=== PATIENT | female | born 1955 | race Two or more races ===

== ENCOUNTER 2020-10-30 13:42 | Inpatient (IN) | payer OTHER ==
[~2020-10-30] VITALS: Ht 162.6 cm; Wt 61.7 kg
[2020-10-30 14:13] VITALS: BP 181/92
--- NOTE | 2020-10-30 14:14 | Emergency Room Report ---
History of Present Illness General Chief Complaint: Chest Pain Source: Patient Present Illness HPI Patient is a 65-year-old female past medical history of hyperlipidemia not on medications who presents to the ER complaining of chest pain. Patient complains of substernal chest pressure that started on Wednesday on exertion. She states that she does not have pain at rest. She states it is associated with shortness of breath. She denies any fever or chills. She denies any cough. She denies any abdominal pain nausea or vomiting. She denies any smoking. Allergies: Coded Allergies: No Known Allergies (Unverified , 10/30/20) COVID-19 Screening Contact w/high risk pt: No Experienced COVID-19 symptoms?: No COVID-19 Testing performed OTOLOGIST: No COVID-19 Screening: Negative COVID-19 COVID-19 Testing Source: nasal Patient History Reviewed Nursing Documentation: PMH: Agreed; PSxH: Agreed Nursing Documentation-PMH Past Medical History: No Stated History Review of Systems All Other Systems: negative except mentioned in HPI Physical Exam Vital Signs Date Time Temp Pulse Resp B/P (MAP) Pulse Ox O2 Delivery O2 Flow Rate FiO2 10/30/20 13:47 98.2 76 18 181/92 (121) 96 Room Air Sp02 EP Interpretation: reviewed, normal General Appearance: no apparent distress, alert, GCS 15, non-toxic Head: normocephalic, atraumatic Eyes: bilateral eye normal inspection, bilateral eye PERRL ENT: hearing grossly normal, normal pharynx, no angioedema, normal voice Neck: full range of motion, supple/symm/no masses Respiratory: chest non-tender, lungs clear, normal breath sounds, speaking full sentences Cardiovascular #1: regular rate, rhythm, no edema Gastrointestinal: normal bowel sounds, non tender, soft, non-distended, no guar ding, no rebound Rectal: deferred Musculoskeletal: normal range of motion Neurologic: trophy assembler III-XII nml as tested, oriented x3 Psychiatric: no suicidal/homicidal ideation Skin: no rash Lymphatic: no adenopathy Medical Decision Making Diagnostic Impression: Primary Impression: Chest pain Additional Impression: Exercise intolerance ER Course Patient has new exercise intolerance and chest pain with associated shortness of breath. Patient denies pain in the emergency room because she is at rest. EKG demonstrates no ST elevation. Chest x-ray demonstrates no acute cardiopulmonary pathology. Troponin negative x1. D-dimer is negative. Patient given oral aspirin in the emergency room. Patient will be admitted for further treatment and evaluation. Laboratory Tests Test 10/30/20 13:57 White Blood Count 8.5 K/UL (4.8-10.8) Red Blood Count 4.98 M/UL (4.20-5.40) Hemoglobin 14.7 G/DL (12.0-16.0) Hematocrit 44.5 % (37.0-47.0) Mean Corpuscular Volume 89 FL (80-99) Mean Corpuscular Hemoglobin 29.5 PG (27.0-31.0) Mean Corpuscular Hemoglobin Concent 33.0 G/DL (32.0-36.0) Red Cell Distribution Width 12.6 % (11.6-14.8) Platelet Count 245 K/UL (150-450) Mean Platelet Volume 7.3 FL (6.5-10.1) Neutrophils (%) (Auto) 63.0 % (45.0-75.0) Lymphocytes (%) (Auto) 28.8 % (20.0-45.0) Monocytes (%) (Auto) 6.2 % (1.0-10.0) Eosinophils (%) (Auto) 0.9 % (0.0-3.0) Basophils (%) (Auto) 1.1 % (0.0-2.0) D-Dimer < 0.19 mg/L FEU Sodium Level 139 MMOL/L (136-145) Potassium Level 4.6 MMOL/L (3.5-5.1) Chloride Level 104 MMOL/L (98-107) Carbon Dioxide Level 24 MMOL/L (21-32) Anion Gap 11 mmol/L (5-15) Blood Urea Nitrogen 16 mg/dL (7-18) Creatinine 0.5 MG/DL (0.55-1.30) L Estimated Glomerular Filtration Rate > 60 mL/min (>60) Glucose Level 108 MG/DL (74-106) H Calcium Level 9.6 MG/DL (8.5-10.1) Magnesium Level 2.3 MG/DL (1.8-2.4) Total Bilirubin 0.6 MG/DL (0.2-1.0) Aspartate Amino Transferase (AST) 31 U/L (15-37) Alanine Aminotransferase (ALT) 25 U/L (12-78) Alkaline Phosphatase 89 U/L (46-116) Troponin I 0.000 ng/mL (0.000-0.056) Pro-B-Type Natriuretic Peptide 34 pg/mL (0-125) Total Protein 8.2 G/DL (6.4-8.2) Albumin 4.4 G/DL (3.4-5.0) Globulin 3.8 g/dL Albumin/Globulin Ratio 1.2 (1.0-2.7) EKG Diagnostic Results Troponin ordered: Yes When was troponin ordered?: Oct 30, 2020 EKG Time: 14:01 EP Interpretation: Latrice Marc MD Rate: normal Rhythm: NSR - [address] Segments: no acute changes ASA given to the pt in ED: No Rhythm Strip Diag. Results Rhythm Strip Time: 14:18 EP Interpretation: yes Rate: 69 bpm Rhythm: NSR, no PVC's, no ectopy Chest X-Ray Diagnostic Results Chest X-Ray Diagnostic Results : Chest X-Ray Ordered: Yes # of Views/Limited/Complete: 1 View Indication: Chest Pain EP Interpretation: Yes Interpretation: no consolidation, no effusion, no pneumothorax, no acute cardiopulmonary disease Impression: No acute disease Electronically Signed by: Latrice Marc MD Last Vital Signs Date Time Temp Pulse Resp B/P (MAP) Pulse Ox O2 Delivery O2 Flow Rate FiO2 10/30/20 13:47 98.2 76 18 181/92 (121) 96 Room Air Disposition: ADMITTED INPATIENT - Telemetry Condition: Critical Physician Consult: Dr. Zhang at 330pm Referrals: BRANDI MEDRANO,REFERRING (PCP) Additional Instructions: Please note that this report is being documented using Truvis[employer] technology. This can lead to erroneous entry secondary to incorrect interpretation by the dictating instrument. Latrice Marc M.D. Oct 30, 2020 14:14
[2020-10-30] MEDS ORDERED: Aspirin Baby 81mg ORAL ONE (14:15)
[2020-10-30 14:24] LABS: BASOPHILS % (AUTO) 1.1 % (0.0-2.0); EOSINOPHILS % (AUTO) 0.9 % (0.0-3.0); HEMATOCRIT 44.5 % (37.0-47.0); HEMOGLOBIN 14.7 G/DL (12.0-16.0); LYMPHOCYTES % (AUTO) 28.8 % (20.0-45.0); MEAN CORPUSCULAR VOLUME 89 FL (80-99); MONOCYTES % (AUTO) 6.2 % (1.0-10.0); PLATELET COUNT 245 K/UL (150-450); RED BLOOD COUNT 4.98 M/UL (4.20-5.40); RED CELL DISTRIBUTION WIDTH 12.6 % (11.6-14.8); WHITE BLOOD COUNT 8.5 K/UL (4.8-10.8)
[2020-10-30 14:25] LABS: ANION GAP 11 mmol/L (5-15); BLOOD UREA NITROGEN 16 mg/dL (7-18); CALCIUM 9.6 MG/DL (8.5-10.1); CARBON DIOXIDE 24 MMOL/L (21-32); CHLORIDE 104 MMOL/L (98-107); CREATININE 0.5 MG/DL (0.55-1.30); POTASSIUM 4.6 MMOL/L (3.5-5.1); SODIUM 139 MMOL/L (136-145)
[2020-10-30 14:36] LABS: ALANINE AMINOTRANSFERASE 25 U/L (12-78); ALBUMIN 4.4 G/DL (3.4-5.0); ALBUMIN/GLOBULIN RATIO 1.2 (1.0-2.7); ALKALINE PHOSPHATASE 89 U/L (46-116); ASPARTATE AMINO TRANSFERASE 31 U/L (15-37); BILIRUBIN,TOTAL 0.6 MG/DL (0.2-1.0)
--- NOTE | 2020-10-30 15:22 | Diagnostic Imaging Report ---
Indication: Chest pain Technique: One view of the chest Comparison: none Findings: Lungs and pleural spaces are clear. Heart size is normal. Impression: No acute process
--- NOTE | 2020-10-30 16:25 | Consultation ---
Consult Note Consult Note DATE OF CONSULTATION: 10/30/2020 CONSULTING PHYSICIAN: Alon Earl MD. ATTENDING PHYSICIAN: Dr. Zhang REASON FOR CONSULTATION: Shortness of breath associated with exertional chest pain HISTORY OF PRESENT ILLNESS: Ms. Darby is a 65-year-old female with past medical history of hyperlipidemia not on medications, who presented to the ED for evaluation of chest discomfort. Patient states that she had a new onset chest pain 6 days ago for which she went to a [facility]. She stated that she had blurry vision associated with the chest pain. She reports her chest pain was acute onset, and happened when she was laying down. She reports that she was not admitted to the hospital and was given an [id number] pain medication. She was told to make a follow-up appointment with her primary care provider. She called her primary care provider on Wednesday, 2 days ago, but was told she could not be seen anytime soon. Today she presents to the ED concerned about her recent chest discomfort and wants evalulation. Today she is asymptomatic. She denies headache, chest pain, fever, nausea/vomiting, diarrhea, or dysuria. She does report orthopnea x2 weeks, and reports using pillows at night. She reports seeing a pharmacist in charge owner about 5 years ago for palpitation but denies being on any medication at home. Initial EKG showed normal sinus rhythm without acute changes. Chest x-ray was clear from acute disease. Patient was given aspirin in the ER and is awaiting admission for further treatment and evaluation. PAST MEDICAL HISTORY: Hyperlipidemia MEDICATIONS: None per patient ALLERGIES: No known allergies FAMILY HISTORY: Unknown PERSONAL/SOCIAL HISTORY: Patient is from home REVIEW OF SYSTEMS: Negative except mentioned in HPI PHYSICAL EXAMINATION: VITAL SIGNS: Blood pressure 181/92, heart rate 76, respiratory rate 18, weight 62 kg, height 162 cm. General: Patient laying in bed comfortably, NAD, normal work of breathing on room air HEENT: Head exam reveals that the head is normocephalic, atraumatic without deformity or unusual swelling. Pupils are PERRLA. CHEST AND LUNGS: Reveals clear, normal, symmetrical breath sounds with no adventitious sounds. CARDIOVASCULAR: Reveals normal S1, S2 without murmurs, rubs, or clicks. ABDOMEN: Soft with no tenderness or organomegaly. RECTAL: Deferred. MUSCULOSKELETAL: There is no tenderness to palpation. Range of motion is normal. NEUROLOGICAL: Alert and oriented x3 , nonfocal LABORATORY DATA: CBC is within normal limits Chemistries show creatinine 0.5, glucose 108, otherwise unremarkable D-dimer negative Assessment/Plan 1. History of respiratory distress associated with chest discomfort -Patient reports 2 weeks history of orthopnea and chest discomfort -Currently saturating well on room air, normal work of breathing -Provide supplemental oxygen as needed 2. Chest discomfort -Troponin negative -BNP within normal limits -D-dimer negative 3. History of hyperlipidemia -Patient is not on any medication -Follow-up lipid panel 4. Hypertension - needs BP control The care for this patient was discussed with my supervising physician. Time spent for this case was approximately 31 minutes. Zach Gibson Oct 30, 2020 16:25
[2020-10-30 16:43] VITALS: BP 134/83
--- NOTE | 2020-10-30 16:47 | NUR ---
ED Nurses Note: Give report to Finn FREY
--- NOTE | 2020-10-30 17:20 | NUR ---
NURSE NOTES: Received patient from ED via gurney. Patient is Awake, A/O x4, on room air, respirations unlabored. Gibralt[place] speaking. Patient denies pain at this time. IV in the Right hand, site intact. Bed low and locked, side rails up x2, call light within reach with return demonstration. Patient oriented to room and surroundings. VS taken, Heart monitor placed, belongings list verified. Dr Zhang contacted for admission orders.
[2020-10-30 17:35] VITALS: BP 151/83
--- NOTE | 2020-10-30 17:53 | NUR ---
NURSE NOTES: Dr Zhang office contacted for admission orders, message left.
[2020-10-30] MEDS ORDERED: Nitroglycerin Subl 0.4mg tab SL PRN (18:15)
--- NOTE | 2020-10-30 19:21 | NUR ---
NURSE HAND-OFF REPORT: Important Events on Shift:[admission] Patient Status: [FULL CODE] Diet: [cardiac] Pending Orders: [2d echo, troponin q 6 x3] Pending Results/Labs:[] Pending MD notification:[] Latest Vital Signs: Temperature 98.1 , Pulse 66 , B/P 151 /83 , Respiratory Rate 17 , O2 SAT 98 , Room Air, O2 Flow Rate . Vital Sign Comment: [] EKG Rhythm: Sinus Rhythm Rhythm change?: MD Notified?: - MD Response: Latest Priest Fall Score: 20 Fall Risk: Low Risk Safety Measures: Call light Within Reach, Bed Alarm , Side Rails Side Rails x2, Bed position Low and Locked. Fall Precautions: Patient Fall Education Report given to [Cristino FREY].
--- NOTE | 2020-10-30 19:25 | NUR ---
NURSE NOTES: Report received from TK Briseno. Patient is awake on bed, alert and oriented x 4. classroom monitor is in place, shows sinus rhythm with no chest pain reported. On room air, saturating 97%. On cardiac diet, instructed and amenable. Per RN patient is ambulatory with steady gait. IV site is on right hand g-20 saline locked that is patent and intact. Safety measures are in place, bed in lowest and locked position, side rails up x 2, call light button and bedside table within reach, instructed to call for any assistance needed, will continue plan of care.
[2020-10-30 20:00] VITALS: BP 167/81
--- NOTE | 2020-10-30 20:00 | NUR ---
NURSE NOTES: Place SCD's on bilateral lower extremities for DVT prophylaxis.
[2020-10-30] MEDS: Atorvastatin 80mg tab ORAL SCH (20:24)
--- NOTE | 2020-10-30 20:59 | Consultation ---
History of Present Illness General Chief Complaint: Chest Pain Present Illness HPI 65-year-old female with past medical history of hyperlipidemia not on medications, admitted through the ER c/o chest discomfort x 6days. No hx of SD or prior PCI. She reports her chest pain was acute onset, and happened when she was laying down. Today she is asymptomatic. She denies headache, chest pain, fever, nausea/vomiting, diarrhea, or dysuria. She does report orthopnea x2 weeks, and reports using pillows at night. She reports seeing a floor nurse about 5 years ago for palpitation but denies being on any medication at home. Given aspirin and nitro in the ER. Echo pending. Troponin negative, BNP negative, EKG SR T wave inversions non-specific,no ST elevation or depression. Allergies: Coded Allergies: No Known Allergies (Unverified , 10/30/20) Patient History Limited by: language barrier History Provided By: Patient Healthcare decision maker N Resuscitation status Advanced Directive on File Review of Systems All Other Systems: negative except mentioned in HPI Physical Exam General Appearance: no apparent distress, alert HEENT: normocephalic, atraumatic Neck: supple Respiratory/Chest: lungs clear, normal breath sounds Cardiovascular/Chest: normal rate, regular rhythm Abdomen: soft Extremities: no edema Skin Exam: warm/dry Neurologic: sample sawyer II-XII grossly normal Last 24 Hour Vital Signs Date Time Temp Pulse Resp B/P (MAP) Pulse Ox O2 Delivery O2 Flow Rate FiO2 10/30/20 18:34 66 151/83 10/30/20 17:35 98.1 53 17 151/83 (105) 98 10/30/20 17:12 Room Air 10/30/20 17:00 98.0 58 18 134/83 100 Room Air 10/30/20 16:43 98.0 58 18 134/83 100 Room Air 10/30/20 14:13 98.2 18 181/92 96 Room Air 10/30/20 14:13 76 18 Room Air 10/30/20 13:47 98.2 76 18 181/92 (121) 96 Room Air Laboratory Tests Test 10/30/20 13:57 White Blood Count 8.5 K/UL (4.8-10.8) Red Blood Count 4.98 M/UL (4.20-5.40) Hemoglobin 14.7 G/DL (12.0-16.0) Hematocrit 44.5 % (37.0-47.0) Mean Corpuscular Volume 89 FL (80-99) Mean Corpuscular Hemoglobin 29.5 PG (27.0-31.0) Mean Corpuscular Hemoglobin Concent 33.0 G/DL (32.0-36.0) Red Cell Distribution Width 12.6 % (11.6-14.8) Platelet Count 245 K/UL (150-450) Mean Platelet Volume 7.3 FL (6.5-10.1) Neutrophils (%) (Auto) 63.0 % (45.0-75.0) Lymphocytes (%) (Auto) 28.8 % (20.0-45.0) Monocytes (%) (Auto) 6.2 % (1.0-10.0) Eosinophils (%) (Auto) 0.9 % (0.0-3.0) Basophils (%) (Auto) 1.1 % (0.0-2.0) D-Dimer < 0.19 mg/L FEU Sodium Level 139 MMOL/L (136-145) Potassium Level 4.6 MMOL/L (3.5-5.1) Chloride Level 104 MMOL/L (98-107) Carbon Dioxide Level 24 MMOL/L (21-32) Anion Gap 11 mmol/L (5-15) Blood Urea Nitrogen 16 mg/dL (7-18) Creatinine 0.5 MG/DL (0.55-1.30) L Estimat Glomerular Filtration Rate > 60 mL/min (>60) Glucose Level 108 MG/DL (74-106) H Calcium Level 9.6 MG/DL (8.5-10.1) Magnesium Level 2.3 MG/DL (1.8-2.4) Total Bilirubin 0.6 MG/DL (0.2-1.0) Aspartate Amino Transf (AST/SGOT) 31 U/L (15-37) Alanine Aminotransferase (ALT/SGPT) 25 U/L (12-78) Alkaline Phosphatase 89 U/L (46-116) Troponin I 0.000 ng/mL (0.000-0.056) Pro-B-Type Natriuretic Peptide 34 pg/mL (0-125) Total Protein 8.2 G/DL (6.4-8.2) Albumin 4.4 G/DL (3.4-5.0) Globulin 3.8 g/dL Albumin/Globulin Ratio 1.2 (1.0-2.7) Height (Feet): 5 Height (Inches): 4.00 Weight (Pounds): 136 Medications Current Medications Medications (Trade) Dose Ordered Sig/Sang Route PRN Reason Start Time Stop Time Status Last Admin Dose Admin Amlodipine Besylate (Norvasc) 5 mg DAILY ORAL 10/30/20 18:30 11/29/20 18:29 10/30/20 18:34 Aspirin (ASA) 81 mg DAILY ORAL 10/31/20 09:00 12/15/20 08:59 Atorvastatin Calcium (Lipitor) 80 mg BEDTIME ORAL 10/30/20 21:00 01/28/21 20:59 10/30/20 20:24 Hydralazine HCl (Apresoline) 10 mg Q4H PRN IV For High Blood Pressure 10/30/20 18:15 01/28/21 18:14 Nitroglycerin (Ntg) 0.4 mg Q5M PRN SL Prn Chest Pain 10/30/20 18:15 11/29/20 18:14 Assessment/Plan Status: stable Assessment/Plan: 1. Chest pain - atypical, non-exertional troponin negative 2. HTN 3. HPLD Echo pending. Recommend Lexiscan to r/o ischemic cardiomyopathy as etiology for chest pain. Further recs to follow clinical progress. Stable at time of exam. Yamilex Morales PA-C Oct 30, 2020 20:59
--- NOTE | 2020-10-30 22:00 | NUR ---
NURSE NOTES: Patient's blood pressure was 169/87, with due hydralazine 0.5mg IV push.
--- NOTE | 2020-10-30 23:30 | NUR ---
NURSE NOTES: Re-checked patient's blood pressure after giving hydralazine was 89/50, will place the patient on Trendelenburg position.
[2020-10-31] VITALS: BP 98/55
[2020-10-31 04:00] VITALS: BP 109/65
--- NOTE | 2020-10-31 07:22 | NUR ---
NURSE HAND-OFF REPORT: Important Events on Shift: Patient has been resting well the whole shift, with no complaints of chest pain. Patient Status: Patient is awake on bed in stable condition. Plan of care endorsed. Diet: Cardiac diet Pending Orders: 2D-ECHO Pending Results/Labs:AM lab result Pending MD notification:none Latest Vital Signs: Temperature 97.5 , Pulse 79 , B/P 109 /65 , Respiratory Rate 20 , O2 SAT 96 , Room Air, O2 Flow Rate . Vital Sign Comment: stable EKG Rhythm: Sinus Rhythm Rhythm change?: N MD Notified?: - MD Response: Latest Priest Fall Score: 20 Fall Risk: Low Risk Safety Measures: Call light Within Reach, Bed Alarm , Side Rails Side Rails x2, Bed position Low and Locked. Fall Precautions: Patient Fall Education Report given to TK Briseno.
--- NOTE | 2020-10-31 07:32 | NUR ---
NURSE NOTES: Received patient in bed. Awake, A/O x4, chilean speaking only. Patient denies pain. On room air, respirations unlabored. Bed low and locked, side rails up x2, call light within reach with return demonstration.
[2020-10-31 08:00] VITALS: BP 110/72
--- NOTE | 2020-10-31 08:12 | History & Physical ---
History of Present Illness General Reason for Hospitalization: Chest Pain Present Illness HPI Ms. Darby is a 65-year-old female with past medical history of hyperlipidemia not on medications, who presented to the ED for evaluation of chest discomfort. Patient states that she had a new onset chest pain 6 days ago for which she went to a community [facility]. She stated that she had blurry vision associated with the chest pain. She reports her chest pain was acute onset, and happened when she was laying down. She reports that she was not admitted to the hospital and was given an [id number] pain medication. She was told to make a follow-up appointment with her primary care provider. She called her primary care provider on Wednesday, 2 days ago, but was told she could not be seen anytime soon. Today she presents to the ED concerned about her recent chest discomfort and wants evalulation. Today she is asymptomatic. She denies headache, chest pain, fever, nausea/vomiting, diarrhea, or dysuria. She does report orthopnea x2 weeks, and reports using pillows at night. She reports seeing a behaviour support teacher about 5 years ago for palpitation but denies being on any medication at home. Initial EKG showed normal sinus rhythm without acute changes. Chest x-ray was clear from acute disease. Patient was given aspirin in the ER and is awaiting admission for further treatment and evaluation. PAST MEDICAL HISTORY: Hyperlipidemia MEDICATIONS: None per patient ALLERGIES: No known allergies FAMILY HISTORY: Unknown PERSONAL/SOCIAL HISTORY: Patient is from home Allergies: Coded Allergies: No Known Allergies (Unverified , 10/30/20) COVID-19 Screening Contact w/high risk pt: No Experienced COVID-19 symptoms?: No Patient History Healthcare decision maker N Resuscitation status Advanced Directive on File Review of Systems Review of Symptoms General ROS: no weight loss or fever Psychological ROS: no depression or mood changes, no memory loss Ophthalmic ROS: no visual changes or eye irritation ENT ROS: no nasal congestion, hearing loss, dizziness Allergy and Immunology ROS: no allergic symptoms or urticaria Hematological and Lymphatic ROS: no swollen glands, unusual bleeding or bruising Endocrine ROS: no polyuria, polydipsia, weight changes, temperature intolerance Respiratory ROS: no cough, shortness of breath, or wheezing Cardiovascular ROS: + chest pain Gastrointestinal ROS: denies abdominal pain, bright red blood in stool. Musculoskeletal ROS: no myalgias or arthralgias Neurological ROS: no TIA or stroke symptoms Dermatological ROS: no new or changing skin lesions, rashes or pruritis Physical Exam Physical Exam General appearance: alert, cooperative, no distress, appears stated age Head: Normocephalic, without obvious abnormality, atraumatic Eyes: conjunctivae/corneas clear. PERRL, EOM's intact. Fundi benign Throat: Lips, mucosa, and tongue normal. Teeth and gums normal Neck: supple, symmetrical, trachea midline, no adenopathy, thyroid: not enlarged, symmetric, no tenderness/mass/nodules, no carotid bruit and no JVD Lungs: clear to auscultation bilaterally Heart: regular rate and rhythm, S1, S2 normal, no murmur, click, rub or gallop Abdomen: soft, non-tender. Bowel sounds normal. No masses, no organomegaly Extremities: extremities normal, atraumatic, no cyanosis or edema Pulses: 2+ and symmetric Skin: Skin color, texture, turgor normal. No rashes or lesions Neurologic: Grossly normal Last 24 Hour Vital Signs Date Time Temp Pulse Resp B/P (MAP) Pulse Ox O2 Delivery O2 Flow Rate FiO2 10/31/20 08:00 96.9 72 18 110/72 (85) 99 10/31/20 04:00 79 10/31/20 04:00 97.5 79 20 109/65 (80) 96 10/31/20 00:00 65 10/31/20 00:00 98.1 62 18 98/55 (69) 96 10/30/20 22:18 169/87 10/30/20 21:00 Room Air 10/30/20 20:00 58 10/30/20 20:00 98.1 55 18 167/81 (109) 98 10/30/20 18:34 66 151/83 10/30/20 17:35 98.1 53 17 151/83 (105) 98 10/30/20 17:12 Room Air 10/30/20 17:00 98.0 58 18 134/83 100 Room Air 10/30/20 16:43 98.0 58 18 134/83 100 Room Air 10/30/20 14:13 98.2 18 181/92 96 Room Air 10/30/20 14:13 76 18 Room Air 10/30/20 13:47 98.2 76 18 181/92 (121) 96 Room Air Intake and Output 10/30/20 10/31/20 19:00 07:00 Intake Total 100 ml 500 ml Balance 100 ml 500 ml Intake Oral 100 ml 500 ml # Voids 2 Laboratory Tests Test 10/30/20 13:57 10/30/20 20:40 10/31/20 02:15 White Blood Count 8.5 K/UL (4.8-10.8) Red Blood Count 4.98 M/UL (4.20-5.40) Hemoglobin 14.7 G/DL (12.0-16.0) Hematocrit 44.5 % (37.0-47.0) Mean Corpuscular Volume 89 FL (80-99) Mean Corpuscular Hemoglobin 29.5 PG (27.0-31.0) Mean Corpuscular Hemoglobin Concent 33.0 G/DL (32.0-36.0) Red Cell Distribution Width 12.6 % (11.6-14.8) Platelet Count 245 K/UL (150-450) Mean Platelet Volume 7.3 FL (6.5-10.1) Neutrophils (%) (Auto) 63.0 % (45.0-75.0) Lymphocytes (%) (Auto) 28.8 % (20.0-45.0) Monocytes (%) (Auto) 6.2 % (1.0-10.0) Eosinophils (%) (Auto) 0.9 % (0.0-3.0) Basophils (%) (Auto) 1.1 % (0.0-2.0) D-Dimer < 0.19 mg/L FEU Sodium Level 139 MMOL/L (136-145) Potassium Level 4.6 MMOL/L (3.5-5.1) Chloride Level 104 MMOL/L (98-107) Carbon Dioxide Level 24 MMOL/L (21-32) Anion Gap 11 mmol/L (5-15) Blood Urea Nitrogen 16 mg/dL (7-18) Creatinine 0.5 MG/DL (0.55-1.30) L Estimat Glomerular Filtration Rate > 60 mL/min (>60) Glucose Level 108 MG/DL (74-106) H Calcium Level 9.6 MG/DL (8.5-10.1) Magnesium Level 2.3 MG/DL (1.8-2.4) Total Bilirubin 0.6 MG/DL (0.2-1.0) Aspartate Amino Transf (AST/SGOT) 31 U/L (15-37) Alanine Aminotransferase (ALT/SGPT) 25 U/L (12-78) Alkaline Phosphatase 89 U/L (46-116) Troponin I 0.000 ng/mL (0.000-0.056) 0.000 ng/mL (0.000-0.056) 0.032 ng/mL (0.000-0.056) Pro-B-Type Natriuretic Peptide 34 pg/mL (0-125) Total Protein 8.2 G/DL (6.4-8.2) Albumin 4.4 G/DL (3.4-5.0) Globulin 3.8 g/dL Albumin/Globulin Ratio 1.2 (1.0-2.7) Height (Feet): 5 Height (Inches): 4.00 Weight (Pounds): 136 Medications Current Medications Medications (Trade) Dose Ordered Sig/Sang Route PRN Reason Start Time Stop Time Status Last Admin Dose Admin Amlodipine Besylate (Norvasc) 5 mg DAILY ORAL 10/30/20 18:30 11/29/20 18:29 10/30/20 18:34 Aspirin (ASA) 81 mg DAILY ORAL 10/31/20 09:00 12/15/20 08:59 Atorvastatin Calcium (Lipitor) 80 mg BEDTIME ORAL 10/30/20 21:00 01/28/21 20:59 10/30/20 20:24 Hydralazine HCl (Apresoline) 10 mg Q4H PRN IV For High Blood Pressure 10/30/20 18:15 01/28/21 18:14 10/30/20 22:18 Isosorbide Mononitrate (Imdur) 30 mg DAILY ORAL 10/31/20 09:00 11/30/20 08:59 Losartan Potassium (Cozaar) 50 mg DAILY ORAL 10/31/20 09:00 11/30/20 08:59 Nitroglycerin (Ntg) 0.4 mg Q5M PRN SL Prn Chest Pain 10/30/20 18:15 11/29/20 18:14 Assessment/Plan Diagnosis [place]: #Chest pain# #HTN #HLD - admit inpatient - serial trop - tele - echo - stress test - cardiology eval - asa - statin - losartan 50 daily [facility] Hospital declaration INPATIENT level of care is warranted for this patient because patient is a 89 year old with who presents with suspicion of . I have a high level of concern because . Patient is at high risk for . Plan of care/treatment include . Patient care is expected to be greater than 2 midnights. OBSERVATION level of care is warranted for this patient. Patient is a 89 year old with who presents with . Patient will be admitted for 1 midnight, but if additional night(s) is/are necessary, patient will be converted to inpatient status for the entire hospitalization Disposition: Once the patient is stable to leave the hospital, I anticipate the patient will likely be discharged to the following environment: Estimated discharge date: I spent 70 minutes on this patient's case, and minutes was dedicated to counseling and/or care coordination. MIPS (Merit-based Incentive Payment System) Applicable CPT: 04845, 40284 CHECK ALL THAT ARE MET: Measure #5 (CHF): All ages. Prescribe ABDIRAHMAN/ARB upon discharge for patients with left ventricular systolic dysfunction. If not, the reason is clearly documented in the medical chart. Measure #8 (CHF): All ages. Prescribe a beta rhea upon discharge for patients with left ventricular systolic dysfunction. If not, the reason is clearly documented in the medical chart. Measure #47 Advance care plan or surrogate decision maker documented in the medical record. Measure #130 The provider has documented, updated, or reviewed the patients current medication list and has documented it in the patients note. Measure #374 (All): Send report to referring provider. Measure #407(Sepsis due to MSSA bacteremia): Age 18+ Patient treated with a beta-lactam antibiotic (Nafcillin, Oxacillin or Cefazolin) as definitive therapy. MEDICAL COMPLEXITY High complexity medical decision making (need 2/3 categories) Problem - need 4 points Acute/new problem with new plan for workup (4 points, 1 max) Acute/new problem without additional workup (3 points, 1 max) Unstable chronic problem actively being managed (2 point each, 2 max) Stable chronic problem actively being managed (1 point each, 2 max) Self-limited/transient process (constipation, muscle ache, etc) (1 point each, 2 max) Data - need 4 points Reviewed labs/imaging studies (1 points, 2 max) Independent review of imaging (EKG, xrays, etc) (2 points, 2 max) Discussed case with consult/other MD/RN (2 points, 2 max) High Risk - qualify if have one of the following: Severe exacerbation of acute problem, acute mental status change, IV narcotics, monitoring drug levels (vancomycin, INR, tacrolimus etc) Finn Zhang M.D. Oct 31, 2020 08:12
[2020-10-31 08:59] LABS: BASOPHILS % (AUTO) 0.7 % (0.0-2.0); EOSINOPHILS % (AUTO) 0.5 % (0.0-3.0); HEMOGLOBIN 14.5 G/DL (12.0-16.0); LYMPHOCYTES % (AUTO) 21.2 % (20.0-45.0); MEAN CORPUSCULAR VOLUME 90 FL (80-99); MONOCYTES % (AUTO) 6.5 % (1.0-10.0); NEUTROPHILS % (AUTO) 71.2 % (45.0-75.0); PLATELET COUNT 231 K/UL (150-450); RED BLOOD COUNT 4.87 M/UL (4.20-5.40); RED CELL DISTRIBUTION WIDTH 12.6 % (11.6-14.8); WHITE BLOOD COUNT 7.3 K/UL (4.8-10.8)
[2020-10-31] MEDS: Imdur 30mg tab ORAL SCH (09:03)
[2020-10-31] MEDS: Losartan 50mg tab ORAL SCH (09:03)
[2020-10-31] MEDS: Aspirin Baby 81mg ORAL SCH (09:03)
--- NOTE | 2020-10-31 09:26 | Cardiology Progress Note ---
Assessment/Plan Status: stable Assessment/Plan 1. Chest pain - atypical, non-exertional troponin negative 2. HTN 3. HPLD 4.SOB/CHOWDHURY Lexiscan pending, echo pending. Pt resting and breathing easily, c/o chest pain that comes and goes. SBP improved Subjective ROS Limited/Unobtainable: No Cardiovascular: Reports: chest pain Respiratory: Reports: no symptoms Gastrointestinal/Abdominal: Reports: no symptoms Genitourinary: Reports: no symptoms Subjective Feeling a little better, still c/o intermittant chest pain Objective Last 24 Hour Vital Signs Date Time Temp Pulse Resp B/P (MAP) Pulse Ox O2 Delivery O2 Flow Rate FiO2 10/31/20 09:03 110/72 10/31/20 09:03 110/72 10/31/20 09:03 72 110/72 10/31/20 08:00 96.9 72 18 110/72 (85) 99 10/31/20 04:00 79 10/31/20 04:00 97.5 79 20 109/65 (80) 96 10/31/20 00:00 65 10/31/20 00:00 98.1 62 18 98/55 (69) 96 10/30/20 22:18 169/87 10/30/20 21:00 Room Air 10/30/20 20:00 58 10/30/20 20:00 98.1 55 18 167/81 (109) 98 10/30/20 18:34 66 151/83 10/30/20 17:35 98.1 53 17 151/83 (105) 98 10/30/20 17:12 Room Air 10/30/20 17:00 98.0 58 18 134/83 100 Room Air 10/30/20 16:43 98.0 58 18 134/83 100 Room Air 10/30/20 14:13 98.2 18 181/92 96 Room Air 10/30/20 14:13 76 18 Room Air 10/30/20 13:47 98.2 76 18 181/92 (121) 96 Room Air General Appearance: no apparent distress EENT: PERRL/EOMI Neck: no JVD Rhythm: NSR Cardiovascular: normal rate, regular rhythm Respiratory/Chest: lungs clear Abdomen: soft Extremities: no swelling Neurologic: lot worker II-XII grossly normal Intake and Output 10/30/20 10/31/20 19:00 07:00 Intake Total 100 ml 500 ml Balance 100 ml 500 ml Intake Oral 100 ml 500 ml # Voids 2 Laboratory Tests Test 10/30/20 13:57 10/30/20 20:40 10/31/20 02:15 10/31/20 08:10 White Blood Count 8.5 K/UL (4.8-10.8) 7.3 K/UL (4.8-10.8) Red Blood Count 4.98 M/UL (4.20-5.40) 4.87 M/UL (4.20-5.40) Hemoglobin 14.7 G/DL (12.0-16.0) 14.5 G/DL (12.0-16.0) Hematocrit 44.5 % (37.0-47.0) 44.0 % (37.0-47.0) Mean Corpuscular Volume 89 FL (80-99) 90 FL (80-99) Mean Corpuscular Hemoglobin 29.5 PG (27.0-31.0) 29.8 PG (27.0-31.0) Mean Corpuscular Hemoglobin Concent 33.0 G/DL (32.0-36.0) 33.0 G/DL (32.0-36.0) Red Cell Distribution Width 12.6 % (11.6-14.8) 12.6 % (11.6-14.8) Platelet Count 245 K/UL (150-450) 231 K/UL (150-450) Mean Platelet Volume 7.3 FL (6.5-10.1) 8.4 FL (6.5-10.1) Neutrophils (%) (Auto) 63.0 % (45.0-75.0) 71.2 % (45.0-75.0) Lymphocytes (%) (Auto) 28.8 % (20.0-45.0) 21.2 % (20.0-45.0) Monocytes (%) (Auto) 6.2 % (1.0-10.0) 6.5 % (1.0-10.0) Eosinophils (%) (Auto) 0.9 % (0.0-3.0) 0.5 % (0.0-3.0) Basophils (%) (Auto) 1.1 % (0.0-2.0) 0.7 % (0.0-2.0) D-Dimer < 0.19 mg/L FEU Sodium Level 139 MMOL/L (136-145) Pending Potassium Level 4.6 MMOL/L (3.5-5.1) Pending Chloride Level 104 MMOL/L (98-107) Pending Carbon Dioxide Level 24 MMOL/L (21-32) Pending Anion Gap 11 mmol/L (5-15) Blood Urea Nitrogen 16 mg/dL (7-18) Pending Creatinine 0.5 MG/DL (0.55-1.30) L Pending Estimat Glomerular Filtration Rate > 60 mL/min (>60) Pending Glucose Level 108 MG/DL (74-106) H Pending Calcium Level 9.6 MG/DL (8.5-10.1) Pending Magnesium Level 2.3 MG/DL (1.8-2.4) Pending Total Bilirubin 0.6 MG/DL (0.2-1.0) Aspartate Amino Transf (AST/SGOT) 31 U/L (15-37) Alanine Aminotransferase (ALT/SGPT) 25 U/L (12-78) Alkaline Phosphatase 89 U/L (46-116) Troponin I 0.000 ng/mL (0.000-0.056) 0.000 ng/mL (0.000-0.056) 0.032 ng/mL (0.000-0.056) Pending Pro-B-Type Natriuretic Peptide 34 pg/mL (0-125) Total Protein 8.2 G/DL (6.4-8.2) Albumin 4.4 G/DL (3.4-5.0) Globulin 3.8 g/dL Albumin/Globulin Ratio 1.2 (1.0-2.7) Hemoglobin A1c Pending Phosphorus Level Pending Triglycerides Level Pending Cholesterol Level Pending LDL Cholesterol Pending HDL Cholesterol Pending Cholesterol/HDL Ratio Pending Thyroid Stimulating Hormone (TSH) Pending Yamilex Morales PA-C Oct 31, 2020 09:26
[2020-10-31 09:41] LABS: ANION GAP 5 mmol/L (5-15); BLOOD UREA NITROGEN 18 mg/dL (7-18); CALCIUM 9.3 MG/DL (8.5-10.1); CARBON DIOXIDE 29 MMOL/L (21-32); CHLORIDE 106 MMOL/L (98-107); CHOLESTEROL 222 MG/DL (< 200); CREATININE 0.8 MG/DL (0.55-1.30); HDL CHOLESTEROL 52 MG/DL (40-60); PHOSPHORUS 3.6 MG/DL (2.5-4.9); SODIUM 140 MMOL/L (136-145); TRIGLYCERIDES 103 MG/DL (30-150)
--- NOTE | 2020-10-31 09:55 | NUR ---
CASE MANAGEMENT:REVIEW 65 YR OLD FEMALE PRESENTED TO ER BY DAUGHTER CC: CHEST PAIN SI: CHEST PAIN/ACS 98.2 58 18 181/92 96% ON RA TROPONIN(-) X2 IS: ASA PO CHEST XRAY : TO TELEMETRY DCP: FROM HOME PLAN: STRESS TEST ORDERED
[2020-10-31] MEDS ORDERED: Lexiscan 0.4mg/5ml syringe IV PRN (10:00)
[2020-10-31 12:00] VITALS: BP 94/56
--- NOTE | 2020-10-31 12:14 | Pulmonology Progress Note ---
Subjective ROS Limited/Unobtainable: No Constitutional: Reports: no symptoms HEENT: Repors: no symptoms Respiratory: Reports: no symptoms Cardiovascular: Reports: chest pain - intermittent Gastrointestinal/Abdominal: Reports: no symptoms Allergies: Coded Allergies: No Known Allergies (Unverified , 10/30/20) Objective Last 24 Hour Vital Signs Date Time Temp Pulse Resp B/P (MAP) Pulse Ox O2 Delivery O2 Flow Rate FiO2 10/31/20 09:03 110/72 10/31/20 09:03 110/72 10/31/20 09:03 72 110/72 10/31/20 09:00 Room Air 10/31/20 08:00 69 10/31/20 08:00 96.9 72 18 110/72 (85) 99 10/31/20 04:00 79 10/31/20 04:00 97.5 79 20 109/65 (80) 96 10/31/20 00:00 65 10/31/20 00:00 98.1 62 18 98/55 (69) 96 10/30/20 22:18 169/87 10/30/20 21:00 Room Air 10/30/20 20:00 58 10/30/20 20:00 98.1 55 18 167/81 (109) 98 10/30/20 18:34 66 151/83 10/30/20 17:35 98.1 53 17 151/83 (105) 98 10/30/20 17:12 Room Air 10/30/20 17:00 98.0 58 18 134/83 100 Room Air 10/30/20 16:43 98.0 58 18 134/83 100 Room Air 10/30/20 14:13 98.2 18 181/92 96 Room Air 10/30/20 14:13 76 18 Room Air 10/30/20 13:47 98.2 76 18 181/92 (121) 96 Room Air Intake and Output 10/30/20 10/31/20 19:00 07:00 Intake Total 100 ml 500 ml Balance 100 ml 500 ml Intake Oral 100 ml 500 ml # Voids 2 General Appearance: no acute distress HEENT: atraumatic Respiratory: lungs clear Cardiovascular: normal rate Abdomen: soft, non tender Laboratory Tests 10/30/20 13:57: White Blood Count 8.5, Red Blood Count 4.98, Hemoglobin 14.7, Hematocrit 44.5, Mean Corpuscular Volume 89, Mean Corpuscular Hemoglobin 29.5, Mean Corpuscular Hemoglobin Concent 33.0, Red Cell Distribution Width 12.6, Platelet Count 245, Mean Platelet Volume 7.3, Neutrophils (%) (Auto) 63.0, Lymphocytes (%) (Auto) 28.8, Monocytes (%) (Auto) 6.2, Eosinophils (%) (Auto) 0.9, Basophils (%) (Auto) 1.1, D-Dimer < 0.19, Sodium Level 139, Potassium Level 4.6, Chloride Level 104, Carbon Dioxide Level 24, Anion Gap 11, Blood Urea Nitrogen 16, Creatinine 0.5L, Estimat Glomerular Filtration Rate > 60, Glucose Level 108H, Calcium Level 9.6, Magnesium Level 2.3, Total Bilirubin 0.6, Aspartate Amino Transf (AST/SGOT) 31, Alanine Aminotransferase (ALT/SGPT) 25, Alkaline Phosphatase 89, Troponin I 0.000, Pro-B-Type Natriuretic Peptide 34, Total Protein 8.2, Albumin 4.4, Globulin 3.8, Albumin/Globulin Ratio 1.2 10/30/20 20:40: Troponin I 0.000 10/31/20 02:15: Troponin I 0.032 10/31/20 08:10: White Blood Count 7.3, Red Blood Count 4.87, Hemoglobin 14.5, Hematocrit 44.0, Mean Corpuscular Volume 90, Mean Corpuscular Hemoglobin 29.8, Mean Corpuscular Hemoglobin Concent 33.0, Red Cell Distribution Width 12.6, Platelet Count 231, Mean Platelet Volume 8.4, Neutrophils (%) (Auto) 71.2, Lymphocytes (%) (Auto) 21.2, Monocytes (%) (Auto) 6.5, Eosinophils (%) (Auto) 0.5, Basophils (%) (Auto) 0.7, Sodium Level 140, Potassium Level 4.0, Chloride Level 106, Carbon Dioxide Level 29, Anion Gap 5, Blood Urea Nitrogen 18, Creatinine 0.8#, Estimat Glomerular Filtration Rate > 60, Glucose Level 132H, Calcium Level 9.3, Magnesi um Level 2.5H, Troponin I 0.003, Hemoglobin A1c 5.5, Phosphorus Level 3.6, Triglycerides Level 103, Cholesterol Level 222H, LDL Cholesterol 147H, HDL Cholesterol 52, Cholesterol/HDL Ratio 4.3, Thyroid Stimulating Hormone (TSH) 1.224 Current Medications Medications (Trade) Dose Ordered Sig/Sang Route PRN Reason Start Time Stop Time Status Last Admin Dose Admin Aspirin (ASA) 81 mg DAILY ORAL 10/31/20 09:00 12/15/20 08:59 10/31/20 09:03 Atorvastatin Calcium (Lipitor) 80 mg BEDTIME ORAL 10/30/20 21:00 01/28/21 20:59 10/30/20 20:24 Hydralazine HCl (Apresoline) 10 mg Q4H PRN IV For High Blood Pressure 10/30/20 18:15 01/28/21 18:14 10/30/20 22:18 Isosorbide Mononitrate (Imdur) 30 mg DAILY ORAL 10/31/20 09:00 11/30/20 08:59 10/31/20 09:03 Losartan Potassium (Cozaar) 50 mg DAILY ORAL 10/31/20 09:00 11/30/20 08:59 10/31/20 09:03 Nitroglycerin (Ntg) 0.4 mg Q5M PRN SL Prn Chest Pain 10/30/20 18:15 11/29/20 18:14 Regadenoson (Lexiscan) 0.4 mg ONCE PRN IV STRESS TEST 10/31/20 10:00 11/02/20 23:59 Assessment/Plan Assessment/Plan 1. History of respiratory distress associated with chest discomfort -Patient reports 2 weeks history of orthopnea and chest discomfort -Currently saturating well on room air, normal work of breathing -Provide supplemental oxygen as needed 2. Chest discomfort -Troponin negative -BNP within normal limits -D-dimer negative - Seen by cardio; awaiting Lexiscan, and echo 3. History of hyperlipidemia -On Lipitor -Follow-up lipid panel 4. Hypertension - BP improved The care for this patient was discussed with my supervising physician. Time spent for this case was approximately 31 minutes. Zach Gibson Oct 31, 2020 12:14
--- NOTE | 2020-10-31 13:08 | Consultation ---
History of Present Illness General Date patient seen: Oct 31, 2020 Reason for Hospitalization: Chest Pain Present Illness HPI 65-year-old female past medical history of hyperlipidemia not on medications who presents to the ER complaining of chest pain. Patient complains of substernal chest pressure that started on Wednesday on exertion. She states that she does not have pain at rest. She states it is associated with shortness of breath. She denies any fever or chills. She denies any cough. She denies any abdominal pain nausea or vomiting. She denies any smoking. noted abd distention on admission. surgery called to evaluate and assist with care. Allergies: Coded Allergies: No Known Allergies (Unverified , 10/30/20) COVID-19 Screening Contact w/high risk pt: No Experienced COVID-19 symptoms?: No Medication History Scheduled Acetaminophen* (Tylenol Extra Strength*), 1,000 MG ORAL Q8HR, (Reported) Scheduled PRN Albuterol Sulfate (Proventil Hfa), 2 PUFF IH Q6HR PRN for Shortness of Breath, (Reported) Patient History History Provided By: Patient, Medical Record, PMD Healthcare decision maker N Resuscitation status Advanced Directive on File Past Medical/Surgical History Past Medical/Surgical History: (1) Exercise intolerance (2) Chest pain Review of Systems Review of Symptoms General ROS: no weight loss or fever Psychological ROS: no depression or mood changes, no memory loss Ophthalmic ROS: no visual changes or eye irritation ENT ROS: no nasal congestion, hearing loss, dizziness Allergy and Immunology ROS: no allergic symptoms or urticaria Hematological and Lymphatic ROS: no swollen glands, unusual bleeding or bruising Endocrine ROS: no polyuria, polydipsia, weight changes, temperature intolerance Respiratory ROS: no cough, shortness of breath, or wheezing Cardiovascular ROS: no chest pain or dyspnea on exertion Gastrointestinal ROS: denies abdominal pain, bright red blood in stool. Musculoskeletal ROS: no myalgias or arthralgias Neurological ROS: no TIA or stroke symptoms Dermatological ROS: no new or changing skin lesions, rashes or pruritis Physical Exam Physical Exam General appearance: alert, cooperative, no distress, appears stated age Head: Normocephalic, without obvious abnormality, atraumatic Eyes: conjunctivae/corneas clear. PERRL, EOM's intact. Fundi benign Throat: Lips, mucosa, and tongue normal. Teeth and gums normal Neck: supple, symmetrical, trachea midline, no adenopathy, thyroid: not enlarged, symmetric, no tenderness/mass/nodules, no carotid bruit and no JVD Lungs: clear to auscultation bilaterally Heart: regular rate and rhythm, S1, S2 normal, no murmur, click, rub or gallop Abdomen: soft, non-tender. Bowel sounds normal. No masses, no organomegaly. mild distention Extremities: extremities normal, atraumatic, no cyanosis or edema Pulses: 2+ and symmetric Skin: Skin color, texture, turgor normal. No rashes or lesions Neurologic: Grossly normal Last 24 Hour Vital Signs Date Time Temp Pulse Resp B/P (MAP) Pulse Ox O2 Delivery O2 Flow Rate FiO2 10/31/20 09:03 110/72 10/31/20 09:03 110/72 10/31/20 09:03 72 110/72 10/31/20 09:00 Room Air 10/31/20 08:00 69 10/31/20 08:00 96.9 72 18 110/72 (85) 99 10/31/20 04:00 79 10/31/20 04:00 97.5 79 20 109/65 (80) 96 10/31/20 00:00 65 10/31/20 00:00 98.1 62 18 98/55 (69) 96 10/30/20 22:18 169/87 10/30/20 21:00 Room Air 10/30/20 20:00 58 10/30/20 20:00 98.1 55 18 167/81 (109) 98 10/30/20 18:34 66 151/83 10/30/20 17:35 98.1 53 17 151/83 (105) 98 10/30/20 17:12 Room Air 10/30/20 17:00 98.0 58 18 134/83 100 Room Air 10/30/20 16:43 98.0 58 18 134/83 100 Room Air 10/30/20 14:13 98.2 18 181/92 96 Room Air 10/30/20 14:13 76 18 Room Air 10/30/20 13:47 98.2 76 18 181/92 (121) 96 Room Air Intake and Output 10/30/20 10/31/20 19:00 07:00 Intake Total 100 ml 500 ml Balance 100 ml 500 ml Intake Oral 100 ml 500 ml # Voids 2 Laboratory Tests Test 10/30/20 13:57 10/30/20 20:40 10/31/20 02:15 10/31/20 08:10 White Blood Count 8.5 K/UL (4.8-10.8) 7.3 K/UL (4.8-10.8) Red Blood Count 4.98 M/UL (4.20-5.40) 4.87 M/UL (4.20-5.40) Hemoglobin 14.7 G/DL (12.0-16.0) 14.5 G/DL (12.0-16.0) Hematocrit 44.5 % (37.0-47.0) 44.0 % (37.0-47.0) Mean Corpuscular Volume 89 FL (80-99) 90 FL (80-99) Mean Corpuscular Hemoglobin 29.5 PG (27.0-31.0) 29.8 PG (27.0-31.0) Mean Corpuscular Hemoglobin Concent 33.0 G/DL (32.0-36.0) 33.0 G/DL (32.0-36.0) Red Cell Distribution Width 12.6 % (11.6-14.8) 12.6 % (11.6-14.8) Platelet Count 245 K/UL (150-450) 231 K/UL (150-450) Mean Platelet Volume 7.3 FL (6.5-10.1) 8.4 FL (6.5-10.1) Neutrophils (%) (Auto) 63.0 % (45.0-75.0) 71.2 % (45.0-75.0) Lymphocytes (%) (Auto) 28.8 % (20.0-45.0) 21.2 % (20.0-45.0) Monocytes (%) (Auto) 6.2 % (1.0-10.0) 6.5 % (1.0-10.0) Eosinophils (%) (Auto) 0.9 % (0.0-3.0) 0.5 % (0.0-3.0) Basophils (%) (Auto) 1.1 % (0.0-2.0) 0.7 % (0.0-2.0) D-Dimer < 0.19 mg/L FEU Sodium Level 139 MMOL/L (136-145) 140 MMOL/L (136-145) Potassium Level 4.6 MMOL/L (3.5-5.1) 4.0 MMOL/L (3.5-5.1) Chloride Level 104 MMOL/L (98-107) 106 MMOL/L (98-107) Carbon Dioxide Level 24 MMOL/L (21-32) 29 MMOL/L (21-32) Anion Gap 11 mmol/L (5-15) 5 mmol/L (5-15) Blood Urea Nitrogen 16 mg/dL (7-18) 18 mg/dL (7-18) Creatinine 0.5 MG/DL (0.55-1.30) L 0.8 MG/DL (0.55-1.30) # Estimat Glomerular Filtration Rate > 60 mL/min (>60) > 60 mL/min (>60) Glucose Level 108 MG/DL (74-106) H 132 MG/DL (74-106) H Calcium Level 9.6 MG/DL (8.5-10.1) 9.3 MG/DL (8.5-10.1) Magnesium Level 2.3 MG/DL (1.8-2.4) 2.5 MG/DL (1.8-2.4) H Total Bilirubin 0.6 MG/DL (0.2-1.0) Aspartate Amino Transf (AST/SGOT) 31 U/L (15-37) Alanine Aminotransferase (ALT/SGPT) 25 U/L (12-78) Alkaline Phosphatase 89 U/L (46-116) Troponin I 0.000 ng/mL (0.000-0.056) 0.000 ng/mL (0.000-0.056) 0.032 ng/mL (0.000-0.056) 0.003 ng/mL (0.000-0.056) Pro-B-Type Natriuretic Peptide 34 pg/mL (0-125) Total Protein 8.2 G/DL (6.4-8.2) Albumin 4.4 G/DL (3.4-5.0) Globulin 3.8 g/dL Albumin/Globulin Ratio 1.2 (1.0-2.7) Hemoglobin A1c 5.5 % (4.3-6.0) Phosphorus Level 3.6 MG/DL (2.5-4.9) Triglycerides Level 103 MG/DL (30-150) Cholesterol Level 222 MG/DL (< 200) H LDL Cholesterol 147 mg/dL (<100) H HDL Cholesterol 52 MG/DL (40-60) Cholesterol/HDL Ratio 4.3 (3.3-4.4) Thyroid Stimulating Hormone (TSH) 1.224 uiU/mL (0.358-3.740) Height (Feet): 5 Height (Inches): 4.00 Weight (Pounds): 136 Medications Current Medications Medications (Trade) Dose Ordered Sig/Sang Route PRN Reason Start Time Stop Time Status Last Admin Dose Admin Aspirin (ASA) 81 mg DAILY ORAL 10/31/20 09:00 12/15/20 08:59 10/31/20 09:03 Atorvastatin Calcium (Lipitor) 80 mg BEDTIME ORAL 10/30/20 21:00 01/28/21 20:59 10/30/20 20:24 Hydralazine HCl (Apresoline) 10 mg Q4H PRN IV For High Blood Pressure 10/30/20 18:15 01/28/21 18:14 10/30/20 22:18 Isosorbide Mononitrate (Imdur) 30 mg DAILY ORAL 10/31/20 09:00 11/30/20 08:59 10/31/20 09:03 Losartan Potassium (Cozaar) 50 mg DAILY ORAL 10/31/20 09:00 11/30/20 08:59 10/31/20 09:03 Nitroglycerin (Ntg) 0.4 mg Q5M PRN SL Prn Chest Pain 10/30/20 18:15 11/29/20 18:14 Regadenoson (Lexiscan) 0.4 mg ONCE PRN IV STRESS TEST 10/31/20 10:00 11/02/20 23:59 Assessment/Plan Problem List: (1) Exercise intolerance ICD Codes: R68.89 - Other general symptoms and signs SNOMED: 289907844 (2) Chest pain ICD Codes: R07.9 - Chest pain, unspecified SNOMED: 49770691 Assessment/Plan: 62-year-old female abdominal distention no nausea fever chills. After evaluating the bedside I do understand the evaluation of the abdominal distention likely patient's baseline. No nausea vomiting fever chills tolerating diet no acute surgical intervention plan will follow with rec ommendations serial exams thank you for let me to participate in patient's care David Felix Oct 31, 2020 13:08
[2020-10-31 16:00] VITALS: BP 95/61
--- NOTE | 2020-10-31 19:10 | NUR ---
NURSE HAND-OFF REPORT: Important Events on Shift:[2d echo] Patient Status: [FULL CODE] Diet: [cardiac] Pending Orders: [stress test 11/01] Pending Results/Labs:[] Pending MD notification:[] Latest Vital Signs: Temperature 97.5 , Pulse 75 , B/P 95 /61 , Respiratory Rate 18 , O2 SAT 98 , Room Air, O2 Flow Rate . Vital Sign Comment: [] EKG Rhythm: Sinus Rhythm Rhythm change?: N MD Notified?: - MD Response: Latest Priest Fall Score: 20 Fall Risk: Low Risk Safety Measures: Call light Within Reach, Bed Alarm , Side Rails Side Rails x2, Bed position Low and Locked. Fall Precautions: Patient Fall Education Report given to [Regan FREY].
--- NOTE | 2020-10-31 19:30 | NUR ---
NURSE NOTES: received report from debora schuler. patient on bed, awake and verbally responsive. bulgarian speaking. iv access on the right hand ,saline lock.on room air. no sob. continent. ambultes with assistance. scd's on. sinus rhythm to sinus laine in am shift per am nurse. cardiac catheterization technologist in placed. per ganga," patient is for stress test tomorrow, patient is instructed on the preparations prior to the procedure." reiterated to call and ask for assistance to prevent fall or injury. bed locked and in lowest position. call light and light button within easy reach, reiterated to patient on preparation prior to stress test npo post midnight, no caffeine, no tea, no chocolate, cocoa or energy drink/s. will continue plan of care.
[2020-10-31 20:00] VITALS: BP 105/64
[2020-10-31] MEDS: Atorvastatin 80mg tab ORAL SCH (21:04)
--- NOTE | 2020-10-31 21:35 | Neurology Progress Note ---
Interim History Interim History ROS Limited/Unobtainable: No Interim History 65-year-old female with past medical history of hyperlipidemia not on medications, who presented to the ED for evaluation of chest discomfort. Patient states that she had a new onset chest pain 6 days ago for which she went to a [facility]. She stated that she had blurry vision associated with the chest pain. She reports her chest pain was acute onset, and happened when she was laying down. Reprots dizziness worse with ambulation. Mild SU Objective Physical Exam Last Vital Signs Date Time Temp Pulse Resp B/P (MAP) Pulse Ox O2 Delivery O2 Flow Rate FiO2 10/31/20 16:00 97.5 75 18 95/61 (72) 98 10/31/20 09:00 Room Air Laboratory Tests Test 10/31/20 02:15 10/31/20 08:10 Troponin I 0.032 ng/mL (0.000-0.056) 0.003 ng/mL (0.000-0.056) White Blood Count 7.3 K/UL (4.8-10.8) Red Blood Count 4.87 M/UL (4.20-5.40) Hemoglobin 14.5 G/DL (12.0-16.0) Hematocrit 44.0 % (37.0-47.0) Mean Corpuscular Volume 90 FL (80-99) Mean Corpuscular Hemoglobin 29.8 PG (27.0-31.0) Mean Corpuscular Hemoglobin Concent 33.0 G/DL (32.0-36.0) Red Cell Distribution Width 12.6 % (11.6-14.8) Platelet Count 231 K/UL (150-450) Mean Platelet Volume 8.4 FL (6.5-10.1) Neutrophils (%) (Auto) 71.2 % (45.0-75.0) Lymphocytes (%) (Auto) 21.2 % (20.0-45.0) Monocytes (%) (Auto) 6.5 % (1.0-10.0) Eosinophils (%) (Auto) 0.5 % (0.0-3.0) Basophils (%) (Auto) 0.7 % (0.0-2.0) Sodium Level 140 MMOL/L (136-145) Potassium Level 4.0 MMOL/L (3.5-5.1) Chloride Level 106 MMOL/L (98-107) Carbon Dioxide Level 29 MMOL/L (21-32) Anion Gap 5 mmol/L (5-15) Blood Urea Nitrogen 18 mg/dL (7-18) Creatinine 0.8 MG/DL (0.55-1.30) # Estimat Glomerular Filtration Rate > 60 mL/min (>60) Glucose Level 132 MG/DL (74-106) H Hemoglobin A1c 5.5 % (4.3-6.0) Calcium Level 9.3 MG/DL (8.5-10.1) Phosphorus Level 3.6 MG/DL (2.5-4.9) Magnesium Level 2.5 MG/DL (1.8-2.4) H Triglycerides Level 103 MG/DL (30-150) Cholesterol Level 222 MG/DL (< 200) H LDL Cholesterol 147 mg/dL (<100) H HDL Cholesterol 52 MG/DL (40-60) Cholesterol/HDL Ratio 4.3 (3.3-4.4) Thyroid Stimulating Hormone (TSH) 1.224 uiU/mL (0.358-3.740) Head: normocophalic Neck: no rigidity EENT: benign Neurologic Exam Mental Status: awake, oriented x4 Speech: normal speech Language: normal language Cranial Nerves III, IV, : PERRLA Cranial Nerve V: normal facial sensations Cranial Nerve VIII: normal hearing Motor System: strength 5/5 Impression/Recommendations Problems: (1) Exercise intolerance (2) Chest pain Status: stable Diagnostic Impression DIzziness likely secondary to intense pain, ro ACS no need for brain imaging non focal exam pt ot FU cards Ras Vera MD Oct 31, 2020 21:34
[2020-11-01] VITALS: BP 101/62
--- NOTE | 2020-11-01 | NUR ---
NURSE NOTES: patient is on NPO. removed water/juice and foods on the bedside. npo sign on the overhead of the bed and on the room door.
[2020-11-01 04:00] VITALS: BP 110/66
[2020-11-01 06:11] LABS: BASOPHILS % (AUTO) 0.5 % (0.0-2.0); EOSINOPHILS % (AUTO) 0.9 % (0.0-3.0); HEMATOCRIT 41.4 % (37.0-47.0); HEMOGLOBIN 13.6 G/DL (12.0-16.0); LYMPHOCYTES % (AUTO) 21.6 % (20.0-45.0); MEAN CORPUSCULAR VOLUME 92 FL (80-99); MONOCYTES % (AUTO) 6.6 % (1.0-10.0); NEUTROPHILS % (AUTO) 70.4 % (45.0-75.0); PLATELET COUNT 222 K/UL (150-450); RED BLOOD COUNT 4.52 M/UL (4.20-5.40); RED CELL DISTRIBUTION WIDTH 12.8 % (11.6-14.8); WHITE BLOOD COUNT 10.3 K/UL (4.8-10.8)
--- NOTE | 2020-11-01 06:16 | NUR ---
NURSE HAND-OFF REPORT: Important Events on Shift: NPO POST MIDNIGHT FOR stress test PROCEDURE today. NO CAFFEINE, CHOCOLATE, TEA OR ENERGY DRINK. BRP'S WITH assistance. Patient Status: stable Diet: NPO POST MIDNIGHT Pending Orders:STRESS TEST AND NM MYOCAR EJC FX Pending Results/Labs: Pending MD notification: Latest Vital Signs: Temperature 98.6 , Pulse 66 , B/P 110 /66 , Respiratory Rate 18 , O2 SAT 98 , Room Air, O2 Flow Rate . Vital Sign Comment: EKG Rhythm: Sinus Rhythm Rhythm change?: N MD Notified?: - MD Response: Latest Priest Fall Score: 20 Fall Risk: Low Risk Safety Measures: Call light Within Reach, Bed Alarm , Side Rails Side Rails x2, Bed position Low and Locked. Fall Precautions: Patient Fall Education Addendum: 11/01/20 at 0724 by Bruna Spears RN REPORT GIVEN TO ERNESTO RHOADES
[2020-11-01 06:27] LABS: AMYLASE 53 U/L (25-115)
[2020-11-01 06:47] LABS: ALANINE AMINOTRANSFERASE 18 U/L (12-78); ALBUMIN 3.5 G/DL (3.4-5.0); ALKALINE PHOSPHATASE 72 U/L (46-116); ANION GAP 9 mmol/L (5-15); ASPARTATE AMINO TRANSFERASE 16 U/L (15-37); BILIRUBIN,TOTAL 0.7 MG/DL (0.2-1.0); BLOOD UREA NITROGEN 17 mg/dL (7-18); CALCIUM 8.7 MG/DL (8.5-10.1); CARBON DIOXIDE 25 MMOL/L (21-32); CHLORIDE 108 MMOL/L (98-107); CREATININE 0.7 MG/DL (0.55-1.30); PHOSPHORUS 2.8 MG/DL (2.5-4.9); SODIUM 142 MMOL/L (136-145)
--- NOTE | 2020-11-01 07:45 | NUR ---
NURSE NOTES: Report received from TK Maguire. Patient is awake, alert and oriented x 4. Verbally responsive. clinical research monitor is in place, shows sinus rhythm with no chest pain reported. NPO after MN for stress test/ lexiscan today. On room air, saturating 97%. patient is ambulatory with steady gait with minimal assistance. PIV site is on right hand g-20 saline locked that is patent and intact. saline lock. Safety measures are in place, bed in lowest and locked position, siderails up x 2, call light button and bedside table within reach, instructed to call for any assistance needed, will continue plan of care.
[2020-11-01 08:00] VITALS: BP 110/72
[2020-11-01] MEDS: Imdur 30mg tab ORAL SCH (08:13)
[2020-11-01] MEDS: Losartan 50mg tab ORAL SCH (08:13)
[2020-11-01] MEDS: Aspirin Baby 81mg ORAL SCH (08:16)
--- NOTE | 2020-11-01 09:14 | NUR ---
CASE MANAGEMENT:REVIEW 11/01/20 SI: CHEST PAIN/ACS 98.6 66 18 110/66 98% ON RA TROPONIN(-) X4 IS: IV LEXISCAN X1 IMDUR PO QD COZAAR PO QD ASA PO QD LIPITOR PO QHS : TELEMETRY STATUS DCP: FROM HOME PLAN: SCHEDULED FOR LEXISCAN STRESS TEST FOR TODAY
--- NOTE | 2020-11-01 09:27 | Internal Med Progress Note ---
Subjective Physician Name Finn Zhang Attending Physician Finn Zhang M.D. Current Medications Medications (Trade) Dose Ordered Sig/Sang Route PRN Reason Start Time Stop Time Status Last Admin Dose Admin Aspirin (ASA) 81 mg DAILY ORAL 10/31/20 09:00 12/15/20 08:59 10/31/20 09:03 Atorvastatin Calcium (Lipitor) 80 mg BEDTIME ORAL 10/30/20 21:00 01/28/21 20:59 10/31/20 21:04 Hydralazine HCl (Apresoline) 10 mg Q4H PRN IV For High Blood Pressure 10/30/20 18:15 01/28/21 18:14 10/30/20 22:18 Isosorbide Mononitrate (Imdur) 30 mg DAILY ORAL 10/31/20 09:00 11/30/20 08:59 10/31/20 09:03 Losartan Potassium (Cozaar) 50 mg DAILY ORAL 10/31/20 09:00 11/30/20 08:59 10/31/20 09:03 Nitroglycerin (Ntg) 0.4 mg Q5M PRN SL Prn Chest Pain 10/30/20 18:15 11/29/20 18:14 Regadenoson (Lexiscan) 0.4 mg ONCE PRN IV STRESS TEST 10/31/20 10:00 11/02/20 23:59 Allergies: Coded Allergies: No Known Allergies (Unverified , 10/30/20) ROS Limited/Unobtainable: No Constitutional: Reports: weakness HEENT: Denies: no symptoms, eye pain, blurred vision, tearing, double vision, ear pain, ear discharge, nose pain, nose congestion, throat pain, throat swelling, mouth pain, mouth swelling, other Cardiovascular: Denies: no symptoms, chest pain, edema, irregular heart rate, lightheadedness, palpitations, syncope, other Respiratory: Denies: no symptoms, cough, orthopnea, shortness of breath, SOB with excertion, SOB at rest, sputum, stridor, wheezing, other Gastrointestinal/Abdominal: Denies: no symptoms, abdomen distended, abdominal pain, black stools, tarry stools, blood in stool, constipated, diarrhea, difficulty swallowing, nausea, poor appetite, poor fluid intake, rectal bleeding, vomiting, other Genitourinary: Denies: no symptoms, burning, discharge, frequency, flank pain, hematuria, incontinence, pain, urgency, other Neurologic/Psychiatric: Denies: no symptoms, anxiety, depressed, emotional problems, headache, numbness, paresthesia, pre-existing deficit, seizure, tingling, tremors, weakness, other Subjective Chest xray: Impression: No acute process Objective Last Vital Signs Date Time Temp Pulse Resp B/P (MAP) Pulse Ox O2 Delivery O2 Flow Rate FiO2 11/01/20 08:13 110/72 11/01/20 08:00 97.9 66 18 99 10/31/20 21:00 Room Air Laboratory Tests Test 11/01/20 05:55 White Blood Count 10.3 K/UL (4.8-10.8) Red Blood Count 4.52 M/UL (4.20-5.40) Hemoglobin 13.6 G/DL (12.0-16.0) Hematocrit 41.4 % (37.0-47.0) Mean Corpuscular Volume 92 FL (80-99) Mean Corpuscular Hemoglobin 30.0 PG (27.0-31.0) Mean Corpuscular Hemoglobin Concent 32.8 G/DL (32.0-36.0) Red Cell Distribution Width 12.8 % (11.6-14.8) Platelet Count 222 K/UL (150-450) Mean Platelet Volume 8.4 FL (6.5-10.1) Neutrophils (%) (Auto) 70.4 % (45.0-75.0) Lymphocytes (%) (Auto) 21.6 % (20.0-45.0) Monocytes (%) (Auto) 6.6 % (1.0-10.0) Eosinophils (%) (Auto) 0.9 % (0.0-3.0) Basophils (%) (Auto) 0.5 % (0.0-2.0) Erythrocyte Sedimentation Rate 16 MM/HR (0-30) Sodium Level 142 MMOL/L (136-145) Potassium Level 4.0 MMOL/L (3.5-5.1) Chloride Level 108 MMOL/L (98-107) H Carbon Dioxide Level 25 MMOL/L (21-32) Anion Gap 9 mmol/L (5-15) Blood Urea Nitrogen 17 mg/dL (7-18) Creatinine 0.7 MG/DL (0.55-1.30) Estimat Glomerular Filtration Rate > 60 mL/min (>60) Glucose Level 95 MG/DL (74-106) Lactic Acid Level 0.90 mmol/L (0.4-2.0) Calcium Level 8.7 MG/DL (8.5-10.1) Phosphorus Level 2.8 MG/DL (2.5-4.9) Magnesium Level 2.2 MG/DL (1.8-2.4) Total Bilirubin 0.7 MG/DL (0.2-1.0) Aspartate Amino Transf (AST/SGOT) 16 U/L (15-37) Alanine Aminotransferase (ALT/SGPT) 18 U/L (12-78) Alkaline Phosphatase 72 U/L (46-116) C-Reactive Protein, Quantitative < 0.4 mg/dL (0.00-0.90) Total Protein 6.9 G/DL (6.4-8.2) Albumin 3.5 G/DL (3.4-5.0) Globulin 3.4 g/dL Albumin/Globulin Ratio 1.0 (1.0-2.7) Amylase Level 53 U/L (25-115) Lipase 103 U/L (73-393) Intake and Output 10/31/20 11/01/20 19:00 07:00 Intake Total 360 ml 150 ml Balance 360 ml 150 ml Intake Oral 360 ml 150 ml # Voids 3 Finn Zhang M.D. Nov 01, 2020 09:27
--- NOTE | 2020-11-01 11:06 | Pulmonology Progress Note ---
Subjective ROS Limited/Unobtainable: No Constitutional: Reports: no symptoms HEENT: Repors: no symptoms Respiratory: Reports: no symptoms Cardiovascular: Reports: chest pain - intermittent Gastrointestinal/Abdominal: Reports: no symptoms Allergies: Coded Allergies: No Known Allergies (Unverified , 10/30/20) Objective Last 24 Hour Vital Signs Date Time Temp Pulse Resp B/P (MAP) Pulse Ox O2 Delivery O2 Flow Rate FiO2 11/01/20 09:00 Room Air 11/01/20 08:13 110/72 11/01/20 08:13 110/72 11/01/20 08:00 97.9 66 18 110/72 (85) 99 11/01/20 08:00 61 11/01/20 04:00 66 11/01/20 04:00 98.6 61 18 110/66 (81) 98 11/01/20 00:00 97.7 66 18 101/62 (75) 97 11/01/20 00:00 66 10/31/20 21:00 Room Air 10/31/20 20:00 88 10/31/20 20:00 97.9 73 18 105/64 (78) 97 10/31/20 16:00 97.5 75 18 95/61 (72) 98 10/31/20 16:00 65 10/31/20 12:00 61 10/31/20 12:00 97.7 65 20 94/56 (69) 97 Intake and Output 10/31/20 11/01/20 19:00 07:00 Intake Total 360 ml 150 ml Balance 360 ml 150 ml Intake Oral 360 ml 150 ml # Voids 3 General Appearance: no acute distress HEENT: atraumatic Respiratory: lungs clear Cardiovascular: normal rate Abdomen: soft, non tender Laboratory Tests 11/01/20 05:55: White Blood Count 10.3, Red Blood Count 4.52, Hemoglobin 13.6, Hematocrit 41.4, Mean Corpuscular Volume 92, Mean Corpuscular Hemoglobin 30.0, Mean Corpuscular Hemoglobin Concent 32.8, Red Cell Distribution Width 12.8, Platelet Count 222, Mean Platelet Volume 8.4, Neutrophils (%) (Auto) 70.4, Lymphocytes (%) (Auto) 21.6, Monocytes (%) (Auto) 6.6, Eosinophils (%) (Auto) 0.9, Basophils (%) (Auto) 0.5, Erythrocyte Sedimentation Rate 16, Sodium Level 142, Potassium Level 4.0, Chloride Level 108H, Carbon Dioxide Level 25, Anion Gap 9, Blood Urea Nitrogen 17, Creatinine 0.7, Estimat Glomerular Filtration Rate > 60, Glucose Level 95, Lactic Acid Level 0.90, Calcium Level 8.7, Phosphorus Level 2.8, Magnesium Level 2.2, Total Bilirubin 0.7, Aspartate Amino Transf (AST/SGOT) 16, Alanine Aminotransferase (ALT/SGPT) 18, Alkaline Phosphatase 72, C-Reactive Protein, Quantitative < 0.4, Total Protein 6.9, Albumin 3.5, Globulin 3.4, Albumin/Globulin Ratio 1.0, Amylase Level 53, Lipase 103 Current Medications Medications (Trade) Dose Ordered Sig/Sang Route PRN Reason Start Time Stop Time Status Last Admin Dose Admin Aspirin (ASA) 81 mg DAILY ORAL 10/31/20 09:00 12/15/20 08:59 10/31/20 09:03 Atorvastatin Calcium (Lipitor) 80 mg BEDTIME ORAL 10/30/20 21:00 01/28/21 20:59 10/31/20 21:04 Hydralazine HCl (Apresoline) 10 mg Q4H PRN IV For High Blood Pressure 10/30/20 18:15 01/28/21 18:14 10/30/20 22:18 Isosorbide Mononitrate (Imdur) 30 mg DAILY ORAL 10/31/20 09:00 11/30/20 08:59 10/31/20 09:03 Losartan Potassium (Cozaar) 50 mg DAILY ORAL 10/31/20 09:00 11/30/20 08:59 10/31/20 09:03 Nitroglycerin (Ntg) 0.4 mg Q5M PRN SL Prn Chest Pain 10/30/20 18:15 11/29/20 18:14 Regadenoson (Lexiscan) 0.4 mg ONCE PRN IV STRESS TEST 10/31/20 10:00 11/02/20 23:59 Assessment/Plan Assessment/Plan 1. History of respiratory distress associated with chest discomfort -Patient reports 2 weeks history of orthopnea and chest discomfort -Currently saturating well on room air, normal work of breathing -Provide supplemental oxygen as needed 2. Chest discomfort -Troponin negative -BNP within normal limits -D-dimer negative - Seen by cardio - Lexiscan scheduled today - Echo (10/30) EF 65% 3. History of hyperlipidemia -On Lipitor -Follow-up lipid panel 4. Hypertension - BP improved Continue current management The care for this patient was discussed with my supervising physician. Time spent for this case was approximately 31 minutes. Zach Gibson Nov 01, 2020 11:06
[2020-11-01 11:53] VITALS: BP 131/72
--- NOTE | 2020-11-01 12:49 | Surgery Progress Note ---
Surgery Progress Note Subjective Symptoms: improved, tolerating diet, passing flatus Objective Last 24 Hour Vital Signs Date Time Temp Pulse Resp B/P (MAP) Pulse Ox O2 Delivery O2 Flow Rate FiO2 11/01/20 11:53 97.4 62 20 131/72 (91) 98 11/01/20 09:00 Room Air 11/01/20 08:13 110/72 11/01/20 08:13 110/72 11/01/20 08:00 97.9 66 18 110/72 (85) 99 11/01/20 08:00 61 11/01/20 04:00 66 11/01/20 04:00 98.6 61 18 110/66 (81) 98 11/01/20 00:00 97.7 66 18 101/62 (75) 97 11/01/20 00:00 66 10/31/20 21:00 Room Air 10/31/20 20:00 88 10/31/20 20:00 97.9 73 18 105/64 (78) 97 10/31/20 16:00 97.5 75 18 95/61 (72) 98 10/31/20 16:00 65 I&O Intake and Output 10/31/20 11/01/20 19:00 07:00 Intake Total 360 ml 150 ml Balance 360 ml 150 ml Intake Oral 360 ml 150 ml # Voids 3 Cardiovascular: RSR Respiratory: clear Abdomen: soft, flat, non-tender, present bowel sounds, non-distended Extremities: no edema, no tenderness, no cyanosis Laboratory Tests Test 11/01/20 05:55 White Blood Count 10.3 K/UL (4.8-10.8) Red Blood Count 4.52 M/UL (4.20-5.40) Hemoglobin 13.6 G/DL (12.0-16.0) Hematocrit 41.4 % (37.0-47.0) Mean Corpuscular Volume 92 FL (80-99) Mean Corpuscular Hemoglobin 30.0 PG (27.0-31.0) Mean Corpuscular Hemoglobin Concent 32.8 G/DL (32.0-36.0) Red Cell Distribution Width 12.8 % (11.6-14.8) Platelet Count 222 K/UL (150-450) Mean Platelet Volume 8.4 FL (6.5-10.1) Neutrophils (%) (Auto) 70.4 % (45.0-75.0) Lymphocytes (%) (Auto) 21.6 % (20.0-45.0) Monocytes (%) (Auto) 6.6 % (1.0-10.0) Eosinophils (%) (Auto) 0.9 % (0.0-3.0) Basophils (%) (Auto) 0.5 % (0.0-2.0) Erythrocyte Sedimentation Rate 16 MM/HR (0-30) Sodium Level 142 MMOL/L (136-145) Potassium Level 4.0 MMOL/L (3.5-5.1) Chloride Level 108 MMOL/L (98-107) H Carbon Dioxide Level 25 MMOL/L (21-32) Anion Gap 9 mmol/L (5-15) Blood Urea Nitrogen 17 mg/dL (7-18) Creatinine 0.7 MG/DL (0.55-1.30) Estimat Glomerular Filtration Rate > 60 mL/min (>60) Glucose Level 95 MG/DL (74-106) Lactic Acid Level 0.90 mmol/L (0.4-2.0) Calcium Level 8.7 MG/DL (8.5-10.1) Phosphorus Level 2.8 MG/DL (2.5-4.9) Magnesium Level 2.2 MG/DL (1.8-2.4) Total Bilirubin 0.7 MG/DL (0.2-1.0) Aspartate Amino Transf (AST/SGOT) 16 U/L (15-37) Alanine Aminotransferase (ALT/SGPT) 18 U/L (12-78) Alkaline Phosphatase 72 U/L (46-116) C-Reactive Protein, Quantitative < 0.4 mg/dL (0.00-0.90) Total Protein 6.9 G/DL (6.4-8.2) Albumin 3.5 G/DL (3.4-5.0) Globulin 3.4 g/dL Albumin/Globulin Ratio 1.0 (1.0-2.7) Amylase Level 53 U/L (25-115) Lipase 103 U/L (73-393) Plan Problems: (1) Exercise intolerance (2) Chest pain Additional Comments Improving states feels better no nausea fever chills tolerating diet. Continue current therapy no acute surgical invention planned David Felix Nov 01, 2020 12:49
--- NOTE | 2020-11-01 14:14 | NUR ---
NURSE NOTES: resumed diet. stress test completed.
--- NOTE | 2020-11-01 15:08 | NUR ---
INSURANCE CLINICALS FAXED TO [facility] [employer] [facility]
[2020-11-01] MEDS ORDERED: PROVENTIL HFA6.7 G1 IH (15:17)
[2020-11-01] MEDS ORDERED: ACETAMINOPHEN500 MG ORAL (15:17)
[2020-11-01 15:35] VITALS: BP 115/68
--- NOTE | 2020-11-01 17:35 | Cardiology Progress Note ---
Assessment/Plan Status: stable Assessment/Plan 1. Chest pain - atypical, non-exertional troponin negative Lexiscan non-ischemic 2. HTN 3. HPLD - started on atorvastatin 4. HFpEF, mild diastolic dysfunction EF 60% compensated NYHA class I Lexiscan non-ischemic. ACS ruled out. OK for dc on medical therapy. Subjective ROS Limited/Unobtainable: No Subjective Feeling better, denies chest pain Objective Last 24 Hour Vital Signs Date Time Temp Pulse Resp B/P (MAP) Pulse Ox O2 Delivery O2 Flow Rate FiO2 11/01/20 15:35 97.7 63 18 115/68 (84) 99 11/01/20 12:00 64 11/01/20 11:53 97.4 62 20 131/72 (91) 98 11/01/20 09:00 Room Air 11/01/20 08:13 110/72 11/01/20 08:13 110/72 11/01/20 08:00 97.9 66 18 110/72 (85) 99 11/01/20 08:00 61 11/01/20 04:00 66 11/01/20 04:00 98.6 61 18 110/66 (81) 98 11/01/20 00:00 97.7 66 18 101/62 (75) 97 11/01/20 00:00 66 10/31/20 21:00 Room Air 10/31/20 20:00 88 10/31/20 20:00 97.9 73 18 105/64 (78) 97 General Appearance: no apparent distress Neck: non-tender, no JVD Rhythm: NSR Cardiovascular: normal rate, regular rhythm Respiratory/Chest: normal breath sounds Abdomen: soft Extremities: no swelling Intake and Output 10/31/20 11/01/20 19:00 07:00 Intake Total 360 ml 150 ml Balance 360 ml 150 ml Intake Oral 360 ml 150 ml # Voids 3 Laboratory Tests Test 11/01/20 05:55 White Blood Count 10.3 K/UL (4.8-10.8) Red Blood Count 4.52 M/UL (4.20-5.40) Hemoglobin 13.6 G/DL (12.0-16.0) Hematocrit 41.4 % (37.0-47.0) Mean Corpuscular Volume 92 FL (80-99) Mean Corpuscular Hemoglobin 30.0 PG (27.0-31.0) Mean Corpuscular Hemoglobin Concent 32.8 G/DL (32.0-36.0) Red Cell Distribution Width 12.8 % (11.6-14.8) Platelet Count 222 K/UL (150-450) Mean Platelet Volume 8.4 FL (6.5-10.1) Neutrophils (%) (Auto) 70.4 % (45.0-75.0) Lymphocytes (%) (Auto) 21.6 % (20.0-45.0) Monocytes (%) (Auto) 6.6 % (1.0-10.0) Eosinophils (%) (Auto) 0.9 % (0.0-3.0) Basophils (%) (Auto) 0.5 % (0.0-2.0) Erythrocyte Sedimentation Rate 16 MM/HR (0-30) Sodium Level 142 MMOL/L (136-145) Potassium Level 4.0 MMOL/L (3.5-5.1) Chloride Level 108 MMOL/L (98-107) H Carbon Dioxide Level 25 MMOL/L (21-32) Anion Gap 9 mmol/L (5-15) Blood Urea Nitrogen 17 mg/dL (7-18) Creatinine 0.7 MG/DL (0.55-1.30) Estimat Glomerular Filtration Rate > 60 mL/min (>60) Glucose Level 95 MG/DL (74-106) Lactic Acid Level 0.90 mmol/L (0.4-2.0) Calcium Level 8.7 MG/DL (8.5-10.1) Phosphorus Level 2.8 MG/DL (2.5-4.9) Magnesium Level 2.2 MG/DL (1.8-2.4) Total Bilirubin 0.7 MG/DL (0.2-1.0) Aspartate Amino Transf (AST/SGOT) 16 U/L (15-37) Alanine Aminotransferase (ALT/SGPT) 18 U/L (12-78) Alkaline Phosphatase 72 U/L (46-116) C-Reactive Protein, Quantitative < 0.4 mg/dL (0.00-0.90) Total Protein 6.9 G/DL (6.4-8.2) Albumin 3.5 G/DL (3.4-5.0) Globulin 3.4 g/dL Albumin/Globulin Ratio 1.0 (1.0-2.7) Amylase Level 53 U/L (25-115) Lipase 103 U/L (73-393) Yamilex Morales PA-C Nov 01, 2020 17:35
--- NOTE | 2020-11-01 19:03 | Diagnostic Imaging Report ---
Indications: Chest pain Technique: Single day single isotope protocol utilized. Initially, resting images obtained using IV administration 10.1 millicuries 99M technetium Myoview. Subsequently, patient underwent lexiscan stress testing. See cardiology report for details. During Lexiscan infusion, IV administration 28.3 mCi 99 M technetium Myoview. SPECT and planar images obtained. SPECT images gated to 8 phases of the cardiac cycle were also obtained, and reformatted into cine images for evaluation of ejection fraction. Comparison: none Findings: Per cardiology report, patient experienced nausea and confusion. Per cardiology report, resting EKG demonstrates normal sinus rhythm. No significant ST changes noted during the infusion. Imaging demonstrates normal poststress perfusion. No fixed or reversible perfusion abnormalities. Normal left ventricular chamber size. Gated images are not available at the time of interpretation. Addendum report will be issued when these are provided Impression: Nonischemic clinical response to pharmacologic stress, per cardiology report Nonischemic electrocardiographic response to pharmacologic stress, per cardiology report No imaging findings to suggest ischemia, at level of stress achieved. Gated images not available at the time of interpretation. Addendum report will be issued when these are provided
--- NOTE | 2020-11-01 19:13 | NUR ---
NURSE HAND-OFF REPORT: Important Events on Shift:[stress test completed] Patient Status: [stable] Diet: cardiac] Pending Orders: [labs] Pending Results/Labs:[am] Pending MD notification:[] Latest Vital Signs: Temperature 97.7 , Pulse 63 , B/P 115 /68 , Respiratory Rate 18 , O2 SAT 99 , Room Air, O2 Flow Rate . Vital Sign Comment: [] EKG Rhythm: Sinus Rhythm Rhythm change?: N MD Notified?: - MD Response: Latest Priest Fall Score: 20 Fall Risk: Low Risk Safety Measures: Call light Within Reach, Bed Alarm Zone 2, Side Rails Side Rails x3, Bed position Low and Locked. Fall Precautions: Patient Fall Education Report given to [gho].
--- NOTE | 2020-11-01 19:30 | NUR ---
NURSE NOTES: Receive a report from ERNESTO Zamora. Round is made. Awake and alert. No acute distress noted. Denies any pain or chest discomfort. No SOB. IV is on right hand H/L. Ambulatory steady gaits. Call light within reach. Will continue to monitor.
[2020-11-01 20:00] VITALS: BP 122/78
[2020-11-01] MEDS: Atorvastatin 80mg tab ORAL SCH (21:12)
--- NOTE | 2020-11-01 22:33 | Neurology Progress Note ---
Interim History Interim History ROS Limited/Unobtainable: No Interim History SU improved, bp better Objective Physical Exam Last Vital Signs Date Time Temp Pulse Resp B/P (MAP) Pulse Ox O2 Delivery O2 Flow Rate FiO2 11/01/20 20:00 64 11/01/20 20:00 97.6 18 122/78 (93) 96 11/01/20 09:00 Room Air Laboratory Tests Test 11/01/20 05:55 White Blood Count 10.3 K/UL (4.8-10.8) Red Blood Count 4.52 M/UL (4.20-5.40) Hemoglobin 13.6 G/DL (12.0-16.0) Hematocrit 41.4 % (37.0-47.0) Mean Corpuscular Volume 92 FL (80-99) Mean Corpuscular Hemoglobin 30.0 PG (27.0-31.0) Mean Corpuscular Hemoglobin Concent 32.8 G/DL (32.0-36.0) Red Cell Distribution Width 12.8 % (11.6-14.8) Platelet Count 222 K/UL (150-450) Mean Platelet Volume 8.4 FL (6.5-10.1) Neutrophils (%) (Auto) 70.4 % (45.0-75.0) Lymphocytes (%) (Auto) 21.6 % (20.0-45.0) Monocytes (%) (Auto) 6.6 % (1.0-10.0) Eosinophils (%) (Auto) 0.9 % (0.0-3.0) Basophils (%) (Auto) 0.5 % (0.0-2.0) Erythrocyte Sedimentation Rate 16 MM/HR (0-30) Sodium Level 142 MMOL/L (136-145) Potassium Level 4.0 MMOL/L (3.5-5.1) Chloride Level 108 MMOL/L (98-107) H Carbon Dioxide Level 25 MMOL/L (21-32) Anion Gap 9 mmol/L (5-15) Blood Urea Nitrogen 17 mg/dL (7-18) Creatinine 0.7 MG/DL (0.55-1.30) Estimat Glomerular Filtration Rate > 60 mL/min (>60) Glucose Level 95 MG/DL (74-106) Lactic Acid Level 0.90 mmol/L (0.4-2.0) Calcium Level 8.7 MG/DL (8.5-10.1) Phosphorus Level 2.8 MG/DL (2.5-4.9) Magnesium Level 2.2 MG/DL (1.8-2.4) Total Bilirubin 0.7 MG/DL (0.2-1.0) Aspartate Amino Transf (AST/SGOT) 16 U/L (15-37) Alanine Aminotransferase (ALT/SGPT) 18 U/L (12-78) Alkaline Phosphatase 72 U/L (46-116) C-Reactive Protein, Quantitative < 0.4 mg/dL (0.00-0.90) Total Protein 6.9 G/DL (6.4-8.2) Albumin 3.5 G/DL (3.4-5.0) Globulin 3.4 g/dL Albumin/Globulin Ratio 1.0 (1.0-2.7) Amylase Level 53 U/L (25-115) Lipase 103 U/L (73-393) Head: normocophalic Neck: no rigidity EENT: benign Neurologic Exam Mental Status: awake, oriented x4 Speech: normal speech Language: normal language Cranial Nerves III, IV, : PERRLA Cranial Nerve V: normal facial sensations Cranial Nerve VIII: normal hearing Motor System: strength 5/5 Impression/Recommendations Problems: (1) Exercise intolerance (2) Chest pain Status: stable Diagnostic Impression DIzziness likely secondary to intense pain, ro ACS no need for brain imaging non focal exam pt ot FU cards Ras Vera MD Nov 01, 2020 22:33
[2020-11-02] VITALS: BP 123/79
[2020-11-02 04:00] VITALS: BP 132/72
--- NOTE | 2020-11-02 06:43 | NUR ---
NURSE HAND-OFF REPORT: Important Events on Shift: No acute distress noted. Denies pain. Patient Status: [stable] Diet: [cardiac] Pending Orders: [] Pending Results/Labs:[] Pending MD notification:[] Latest Vital Signs: Temperature 99.3 , Pulse 69 , B/P 132 /72 , Respiratory Rate 18 , O2 SAT 99 , Room Air, O2 Flow Rate . Vital Sign Comment: [] EKG Rhythm: Sinus Rhythm Rhythm change?: N MD Notified?: - MD Response: Latest Priest Fall Score: 35 Fall Risk: Medium Risk Safety Measures: Call light Within Reach, Bed Alarm Zone 2, Side Rails Side Rails x2, Bed position Low and Locked. Fall Precautions: Patient Fall Education
[2020-11-02 06:46] LABS: EOSINOPHILS % (AUTO) 1.5 % (0.0-3.0); HEMATOCRIT 40.9 % (37.0-47.0); HEMOGLOBIN 13.7 G/DL (12.0-16.0); LYMPHOCYTES % (AUTO) 29.1 % (20.0-45.0); MEAN CORPUSCULAR VOLUME 90 FL (80-99); MONOCYTES % (AUTO) 7.8 % (1.0-10.0); NEUTROPHILS % (AUTO) 60.6 % (45.0-75.0); PLATELET COUNT 211 K/UL (150-450); RED BLOOD COUNT 4.52 M/UL (4.20-5.40); RED CELL DISTRIBUTION WIDTH 12.7 % (11.6-14.8); WHITE BLOOD COUNT 7.4 K/UL (4.8-10.8)
[2020-11-02 07:09] LABS: ANION GAP 8 mmol/L (5-15); BLOOD UREA NITROGEN 15 mg/dL (7-18); CALCIUM 9.2 MG/DL (8.5-10.1); CARBON DIOXIDE 25 MMOL/L (21-32); CHLORIDE 107 MMOL/L (98-107); CREATININE 0.6 MG/DL (0.55-1.30); PHOSPHORUS 3.3 MG/DL (2.5-4.9); POTASSIUM 3.9 MMOL/L (3.5-5.1); SODIUM 140 MMOL/L (136-145)
--- NOTE | 2020-11-02 07:15 | NUR ---
NURSE NOTES: Given report for ERNESTO Zamora.
--- NOTE | 2020-11-02 07:16 | NUR ---
NURSE NOTES: Report received from TK Dumont. Patient is awake, alert and oriented x 4. Able to verbalize needs. In the bathroom with steady gait. On personnel monitor in place, shows sinus rhythm with no chest pain reported. On room air, saturating 97%. PIV site is on right hand g-20 saline locked that is patent and intact. saline lock. Safety measures are in place, bed in lowest and locked position, siderails up x 2, call light button and bedside table within reach, instructed to call for any assistance needed, will continue plan of care.
[2020-11-02 08:00] VITALS: BP 91/55
[2020-11-02] MEDS: Imdur 30mg tab ORAL SCH (08:04)
[2020-11-02] MEDS: Aspirin Baby 81mg ORAL SCH (08:04)
[2020-11-02] MEDS: Losartan 50mg tab ORAL SCH (08:05)
--- NOTE | 2020-11-02 11:51 | Surgery Progress Note ---
Surgery Progress Note Subjective Additional Comments Nuc med study noted cardiology input appreciated no vascular compromise to abdomen. Objective Last 24 Hour Vital Signs Date Time Temp Pulse Resp B/P (MAP) Pulse Ox O2 Delivery O2 Flow Rate FiO2 11/02/20 09:00 Room Air 11/02/20 08:05 144/87 11/02/20 08:04 144/87 11/02/20 08:00 71 11/02/20 08:00 97.5 93 18 91/55 (67) 98 11/02/20 04:00 57 11/02/20 04:00 99.3 69 18 132/72 (92) 99 11/02/20 00:00 61 11/02/20 00:00 98.1 61 18 123/79 (94) 96 11/01/20 21:00 Room Air 11/01/20 20:00 64 11/01/20 20:00 97.6 60 18 122/78 (93) 96 11/01/20 15:35 97.7 63 18 115/68 (84) 99 11/01/20 12:00 64 11/01/20 11:53 97.4 62 20 131/72 (91) 98 I&O Intake and Output 11/01/20 11/02/20 19:00 07:00 Intake Total 240 ml 200 ml Balance 240 ml 200 ml Intake Oral 240 ml 200 ml # Voids 4 2 Cardiovascular: RSR Respiratory: clear Abdomen: soft, non-tender, present bowel sounds Extremities: no edema, no tenderness, no cyanosis Laboratory Tests Test 11/02/20 06:10 White Blood Count 7.4 K/UL (4.8-10.8) Red Blood Count 4.52 M/UL (4.20-5.40) Hemoglobin 13.7 G/DL (12.0-16.0) Hematocrit 40.9 % (37.0-47.0) Mean Corpuscular Volume 90 FL (80-99) Mean Corpuscular Hemoglobin 30.3 PG (27.0-31.0) Mean Corpuscular Hemoglobin Concent 33.5 G/DL (32.0-36.0) Red Cell Distribution Width 12.7 % (11.6-14.8) Platelet Count 211 K/UL (150-450) Mean Platelet Volume 7.7 FL (6.5-10.1) Neutrophils (%) (Auto) 60.6 % (45.0-75.0) Lymphocytes (%) (Auto) 29.1 % (20.0-45.0) Monocytes (%) (Auto) 7.8 % (1.0-10.0) Eosinophils (%) (Auto) 1.5 % (0.0-3.0) Basophils (%) (Auto) 1.0 % (0.0-2.0) Sodium Level 140 MMOL/L (136-145) Potassium Level 3.9 MMOL/L (3.5-5.1) Chloride Level 107 MMOL/L (98-107) Carbon Dioxide Level 25 MMOL/L (21-32) Anion Gap 8 mmol/L (5-15) Blood Urea Nitrogen 15 mg/dL (7-18) Creatinine 0.6 MG/DL (0.55-1.30) Estimat Glomerular Filtration Rate > 60 mL/min (>60) Glucose Level 93 MG/DL (74-106) Calcium Level 9.2 MG/DL (8.5-10.1) Phosphorus Level 3.3 MG/DL (2.5-4.9) Magnesium Level 2.3 MG/DL (1.8-2.4) Plan Problems: (1) Exercise intolerance (2) Chest pain Additional Comments cardiology input okay for diet does not seem to have compromise to David Salcedo Nov 02, 2020 11:51
[2020-11-02 12:00] VITALS: BP 108/77
--- NOTE | 2020-11-02 13:38 | Pulmonology Progress Note ---
Subjective ROS Limited/Unobtainable: No Interval Events: Major reported per nursing Constitutional: Reports: no symptoms HEENT: Repors: no symptoms Respiratory: Reports: no symptoms Cardiovascular: Reports: chest pain - intermittent Gastrointestinal/Abdominal: Reports: no symptoms Allergies: Coded Allergies: No Known Allergies (Unverified , 10/30/20) Objective Last 24 Hour Vital Signs Date Time Temp Pulse Resp B/P (MAP) Pulse Ox O2 Delivery O2 Flow Rate FiO2 11/02/20 12:00 61 11/02/20 12:00 97.9 68 16 108/77 (87) 100 11/02/20 09:00 Room Air 11/02/20 08:05 144/87 11/02/20 08:04 144/87 11/02/20 08:00 71 11/02/20 08:00 97.5 93 18 91/55 (67) 98 11/02/20 04:00 57 11/02/20 04:00 99.3 69 18 132/72 (92) 99 11/02/20 00:00 61 11/02/20 00:00 98.1 61 18 123/79 (94) 96 11/01/20 21:00 Room Air 11/01/20 20:00 64 11/01/20 20:00 97.6 60 18 122/78 (93) 96 11/01/20 15:35 97.7 63 18 115/68 (84) 99 Intake and Output 11/01/20 11/02/20 19:00 07:00 Intake Total 240 ml 200 ml Balance 240 ml 200 ml Intake Oral 240 ml 200 ml # Voids 4 2 General Appearance: no acute distress HEENT: atraumatic Respiratory: lungs clear Cardiovascular: normal rate Abdomen: soft, non tender Laboratory Tests 11/02/20 06:10: White Blood Count 7.4, Red Blood Count 4.52, Hemoglobin 13.7, Hematocrit 40.9, Mean Corpuscular Volume 90, Mean Corpuscular Hemoglobin 30.3, Mean Corpuscular Hemoglobin Concent 33.5, Red Cell Distribution Width 12.7, Platelet Count 211, Mean Platelet Volume 7.7, Neutrophils (%) (Auto) 60.6, Lymphocytes (%) (Auto) 29.1, Monocytes (%) (Auto) 7.8, Eosinophils (%) (Auto) 1.5, Basophils (%) (Auto) 1.0, Sodium Level 140, Potassium Level 3.9, Chloride Level 107, Carbon Dioxide Level 25, Anion Gap 8, Blood Urea Nitrogen 15, Creatinine 0.6, Estimat Glomerular Filtration Rate > 60, Glucose Level 93, Calcium Level 9.2, Phosphorus Level 3.3, Magnesium Level 2.3 Current Medications Medications (Trade) Dose Ordered Sig/Sang Route PRN Reason Start Time Stop Time Status Last Admin Dose Admin Aspirin (ASA) 81 mg DAILY ORAL 10/31/20 09:00 12/15/20 08:59 11/02/20 08:04 Atorvastatin Calcium (Lipitor) 80 mg BEDTIME ORAL 10/30/20 21:00 01/28/21 20:59 11/01/20 21:12 Hydralazine HCl (Apresoline) 10 mg Q4H PRN IV For High Blood Pressure 10/30/20 18:15 01/28/21 18:14 10/30/20 22:18 Isosorbide Mononitrate (Imdur) 30 mg DAILY ORAL 10/31/20 09:00 11/30/20 08:59 11/02/20 08:04 Losartan Potassium (Cozaar) 50 mg DAILY ORAL 10/31/20 09:00 11/30/20 08:59 11/02/20 08:05 Nitroglycerin (Ntg) 0.4 mg Q5M PRN SL Prn Chest Pain 10/30/20 18:15 11/29/20 18:14 Regadenoson (Lexiscan) 0.4 mg ONCE PRN IV STRESS TEST 10/31/20 10:00 11/02/20 23:59 Assessment/Plan Assessment/Plan 1. History of respiratory distress associated with chest discomfort -Patient reports 2 weeks history of orthopnea and chest discomfort -Currently saturating well on room air, normal work of breathing -Provide supplemental oxygen as needed 2. Chest discomfort -Troponin negative -BNP within normal limits -D-dimer negative - Seen by cardio - Lexiscan (11/01) no signs of ischemia - Echo (10/30) EF 65% 3. History of hyperlipidemia -On Lipitor -Follow-up lipid panel 4. Hypertension - BP improved Continue current management Medically stable for discharge from pulmonary standpoint The care for this patient was discussed with my supervising physician. Time spent for this case was approximately 31 minutes. Zach Gibson Nov 02, 2020 13:38
[2020-11-02 15:55] VITALS: BP 118/72
--- NOTE | 2020-11-02 18:47 | Internal Med Progress Note ---
Subjective Physician Name Finn Zhang Attending Physician Finn Zhang M.D. Current Medications Medications (Trade) Dose Ordered Sig/Sang Route PRN Reason Start Time Stop Time Status Last Admin Dose Admin Aspirin (ASA) 81 mg DAILY ORAL 10/31/20 09:00 12/15/20 08:59 11/02/20 08:04 Atorvastatin Calcium (Lipitor) 80 mg BEDTIME ORAL 10/30/20 21:00 01/28/21 20:59 11/01/20 21:12 Hydralazine HCl (Apresoline) 10 mg Q4H PRN IV For High Blood Pressure 10/30/20 18:15 01/28/21 18:14 10/30/20 22:18 Isosorbide Mononitrate (Imdur) 30 mg DAILY ORAL 10/31/20 09:00 11/30/20 08:59 11/02/20 08:04 Losartan Potassium (Cozaar) 50 mg DAILY ORAL 10/31/20 09:00 11/30/20 08:59 11/02/20 08:05 Nitroglycerin (Ntg) 0.4 mg Q5M PRN SL Prn Chest Pain 10/30/20 18:15 11/29/20 18:14 Regadenoson (Lexiscan) 0.4 mg ONCE PRN IV STRESS TEST 10/31/20 10:00 11/02/20 23:59 Allergies: Coded Allergies: No Known Allergies (Unverified , 10/30/20) Subjective Chest xray: Impression: No acute process Objective Last Vital Signs Date Time Temp Pulse Resp B/P (MAP) Pulse Ox O2 Delivery O2 Flow Rate FiO2 11/02/20 16:00 73 11/02/20 15:55 97.5 16 118/72 (87) 100 11/02/20 09:00 Room Air Laboratory Tests Test 11/02/20 06:10 White Blood Count 7.4 K/UL (4.8-10.8) Red Blood Count 4.52 M/UL (4.20-5.40) Hemoglobin 13.7 G/DL (12.0-16.0) Hematocrit 40.9 % (37.0-47.0) Mean Corpuscular Volume 90 FL (80-99) Mean Corpuscular Hemoglobin 30.3 PG (27.0-31.0) Mean Corpuscular Hemoglobin Concent 33.5 G/DL (32.0-36.0) Red Cell Distribution Width 12.7 % (11.6-14.8) Platelet Count 211 K/UL (150-450) Mean Platelet Volume 7.7 FL (6.5-10.1) Neutrophils (%) (Auto) 60.6 % (45.0-75.0) Lymphocytes (%) (Auto) 29.1 % (20.0-45.0) Monocytes (%) (Auto) 7.8 % (1.0-10.0) Eosinophils (%) (Auto) 1.5 % (0.0-3.0) Basophils (%) (Auto) 1.0 % (0.0-2.0) Sodium Level 140 MMOL/L (136-145) Potassium Level 3.9 MMOL/L (3.5-5.1) Chloride Level 107 MMOL/L (98-107) Carbon Dioxide Level 25 MMOL/L (21-32) Anion Gap 8 mmol/L (5-15) Blood Urea Nitrogen 15 mg/dL (7-18) Creatinine 0.6 MG/DL (0.55-1.30) Estimat Glomerular Filtration Rate > 60 mL/min (>60) Glucose Level 93 MG/DL (74-106) Calcium Level 9.2 MG/DL (8.5-10.1) Phosphorus Level 3.3 MG/DL (2.5-4.9) Magnesium Level 2.3 MG/DL (1.8-2.4) Intake and Output 11/01/20 11/02/20 19:00 07:00 Intake Total 240 ml 200 ml Balance 240 ml 200 ml Intake Oral 240 ml 200 ml # Voids 4 2 Finn Zhang M.D. Nov 02, 2020 18:47
--- NOTE | 2020-11-02 19:17 | NUR ---
NURSE HAND-OFF REPORT: Important Events on Shift:[uneventful throughout the shift. ] Patient Status: [stable] Diet: [cardiac] Pending Orders: [labs] Pending Results/Labs:[am] Pending MD notification:[] Latest Vital Signs: Temperature 97.5 , Pulse 73 , B/P 118 /72 , Respiratory Rate 16 , O2 SAT 100 , Room Air, O2 Flow Rate . Vital Sign Comment: [] EKG Rhythm: Sinus Rhythm Rhythm change?: N MD Notified?: - MD Response: Latest Priest Fall Score: 35 Fall Risk: Medium Risk Safety Measures: Call light Within Reach, Bed Alarm Zone 1, Side Rails Side Rails x2, Bed position Low and Locked. Fall Precautions: Patient Fall Education Report given to [gho].
--- NOTE | 2020-11-02 19:40 | NUR ---
NURSE NOTES: Spoke with Dr. Zhang about pt's discharge. Pt will go without prescription and will follow up with her primary physician.
--- NOTE | 2020-11-02 19:50 | NUR ---
NURSE NOTES: Update to pt for discharge order and left a message to next to kin.
[2020-11-02 20:00] VITALS: BP 138/81
[2020-11-02] MEDS: Atorvastatin 80mg tab ORAL SCH (20:54)
--- NOTE | 2020-11-02 21:08 | Cardiology Progress Note ---
Assessment/Plan Assessment/Plan 1. Chest pain - atypical, non-exertional troponin negative Lexiscan non-ischemic 2. HTN 3. HPLD - started on atorvastatin 4. HFpEF, mild diastolic dysfunction EF 60% compensated NYHA class I Lexiscan non-ischemic. ACS ruled out. OK for dc on medical therapy. Subjective Subjective Feeling better, denies chest pain Objective Last 24 Hour Vital Signs Date Time Temp Pulse Resp B/P (MAP) Pulse Ox O2 Delivery O2 Flow Rate FiO2 11/02/20 20:59 Room Air 11/02/20 20:00 73 11/02/20 20:00 97.7 65 16 138/81 (100) 100 11/02/20 16:00 73 11/02/20 15:55 97.5 71 16 118/72 (87) 100 11/02/20 12:00 61 11/02/20 12:00 97.9 68 16 108/77 (87) 100 11/02/20 09:00 Room Air 11/02/20 08:05 144/87 11/02/20 08:04 144/87 11/02/20 08:00 71 11/02/20 08:00 97.5 93 18 91/55 (67) 98 11/02/20 04:00 57 11/02/20 04:00 99.3 69 18 132/72 (92) 99 11/02/20 00:00 61 11/02/20 00:00 98.1 61 18 123/79 (94) 96 Intake and Output 11/01/20 11/02/20 19:00 07:00 Intake Total 240 ml 200 ml Balance 240 ml 200 ml Intake Oral 240 ml 200 ml # Voids 4 2 Laboratory Tests Test 11/02/20 06:10 White Blood Count 7.4 K/UL (4.8-10.8) Red Blood Count 4.52 M/UL (4.20-5.40) Hemoglobin 13.7 G/DL (12.0-16.0) Hematocrit 40.9 % (37.0-47.0) Mean Corpuscular Volume 90 FL (80-99) Mean Corpuscular Hemoglobin 30.3 PG (27.0-31.0) Mean Corpuscular Hemoglobin Concent 33.5 G/DL (32.0-36.0) Red Cell Distribution Width 12.7 % (11.6-14.8) Platelet Count 211 K/UL (150-450) Mean Platelet Volume 7.7 FL (6.5-10.1) Neutrophils (%) (Auto) 60.6 % (45.0-75.0) Lymphocytes (%) (Auto) 29.1 % (20.0-45.0) Monocytes (%) (Auto) 7.8 % (1.0-10.0) Eosinophils (%) (Auto) 1.5 % (0.0-3.0) Basophils (%) (Auto) 1.0 % (0.0-2.0) Sodium Level 140 MMOL/L (136-145) Potassium Level 3.9 MMOL/L (3.5-5.1) Chloride Level 107 MMOL/L (98-107) Carbon Dioxide Level 25 MMOL/L (21-32) Anion Gap 8 mmol/L (5-15) Blood Urea Nitrogen 15 mg/dL (7-18) Creatinine 0.6 MG/DL (0.55-1.30) Estimat Glomerular Filtration Rate > 60 mL/min (>60) Glucose Level 93 MG/DL (74-106) Calcium Level 9.2 MG/DL (8.5-10.1) Phosphorus Level 3.3 MG/DL (2.5-4.9) Magnesium Level 2.3 MG/DL (1.8-2.4) Yamilex Morales PA-C Nov 02, 2020 21:07
--- NOTE | 2020-11-02 21:15 | NUR ---
NURSE NOTES: Seen by [employer]. Pt will continue to follow up with Dr. Su next week. [phone]
[2020-11-02] MEDS ORDERED: 1/2 NS 1000ml IV ONE (21:29)
--- NOTE | 2020-11-02 21:30 | NUR ---
NURSE NOTES: Awake and alert. Denies pain. Taken out monitoring specialist, IV H/L and ID band. Pt walks down with staff and provide discharge paper. Done checking belonging list. Left the hospital with her daughter via private car.
--- NOTE | 2020-11-04 19:43 | Cardiology Report ---
APPROVED REPORT EXAM: Two-dimensional and M-mode echocardiogram with Doppler and color Doppler. INDICATION Chest Pain M-Mode DIMENSIONS IVSd0.7 (0.7-1.1cm)Left Atrium (MM)2.9 (1.6-4.0cm) LVDd5.9 (3.5-5.6cm)Aortic Root3.0 (2.0-3.7cm) PWd0.9 (0.7-1.1cm)Aortic Cusp Exc.1.5 (1.5-2.0cm) IVSs1.5 cmEPSS0.3 (>1.0cm) LVDs4.2 (2.5-4.0cm) PWs1.1 cm <Conclusion> Normal left ventricular chamber size, systolic function and wall motion. Left ventricular ejection fraction estimated to be 65 %. No evidence of left ventricular hypertrophy. Anterior Echo-free space, may be due to pericardial fat or effusion. All other cardiac chamber sizes are within normal limits. Focal aortic valve sclerosis with adequate cusp excursion. Thickened mitral valve leaflets with normal excursion. Mitral annulus and aortic root calcification. Pulmonic valve not well visualized. Normal tricuspid valve structure. IVC at normal size and collapsing with respiration. A color flow and spectral Doppler study was performed and revealed: Trace aortic regurgitation. Trace mitral regurgitation. Mitral diastolic velocities suggest reduced left ventricular relaxation c/w mild diastolic dysfunction (Grade I). Trace tricuspid regurgitation. Tricuspid systolic velocities suggests peak right ventricular systolic pressure of 22 mmHg.
--- NOTE | 2020-11-05 15:53 | Discharge Summary ---
Discharge Summary Discharge Summary _ Date of admission: October 30, 2020 Date of discharge: November 02, [address] Zhang History of Present Illness and Brief Hospital Course Ms. Darby is a 65-year-old female with past medical history of hyperlipidemia not on medications, who presented to the ED for evaluation of chest discomfort. She had new onset chest pain since 6 days prior to presentation for which she went to a [facility]. She also complained of blurry vision associated with chest discomfort. From her visit to the [facility], she was not admitted and was told to follow-up with primary care provider. However, patient was unable to make any appointment and thus presented to [place] for further evaluation. Patient was asymptomatic on admission. Her troponin was negative; BNP and D-dimer were within normal limits. Lexiscan showed no signs of ischemia. Echocardiogram revealed ejection fraction of 65%. She also complained of dizziness which was likely secondary to chest pain. There was no indication for brain imaging at the time. Given her history of hyperlipidemia, she was continued on Lipitor. During her hospitalization, she remained symptom-free and her work-up was negative for acute findings. Patient was medically stable for discharge and was discharged home on November 02, 2020. Patient was instructed to follow-up with mechanical manufacturing engineer Dr. Peterson within 1 week upon discharge. Consultants: Cardiology JOSE Block Surgery Dr. Felix Pulmonology Dr. Earl Neurology Dr. Vera Discharge Condition Stable Final diagnoses Atypical, nonexertional chest pain Hypertension Hyperlipidemia Heart failure with preserved ejection fraction Exercise intolerance Respiratory distress I have been assigned to dictate discharge summary for this account. Zach Gibson Nov 05, 2020 15:53
--- NOTE | 2020-11-06 11:10 | Coder Physician Query ---
Clarification is required for compliance, coding accuracy, and to reflect severity of illness for this patient Dear Dr. GARRIDO Date: 11/06/2020 Commercial Development Manager/CDS' Name: AMADOR RINCON Ms. Darby is a 65-year-old female with past medical history of hyperlipidemia not on medications, who presented to the ED for evaluation of chest discomfort. She had new onset chest pain since 6 days prior to presentation for which she went to a [facility]. Her troponin was negative; BNP and D-dimer were within normal limits. Lexiscan showed no signs of ischemia. Echocardiogram revealed ejection fraction of 65%. She also complained of dizziness which was likely secondary to chest pain. There was no indication for brain imaging at the time. Please document the suspected etiology of Chest Pain: [] Acute Coronary Syndrome [] Pericarditis [] Anxiety [] Costochondritis [] Pneumothorax [] GERD/Esophagitis [] Pulmonary embolism [] Other: [] Unable to determine Physician signature Date Please also document in your Progress Notes and/or Discharge Summary and indicate if the condition was present on admission. BAYLEE
--- NOTE | 2020-11-07 08:48 | NUR ---
INSURANCE DC SUMMARY FAXED TO [facility] option 4
--- NOTE | 2020-11-10 19:49 | Cardiology Report ---
APPROVED REPORT EKG Measurement Heart [id number] <Conclusion> Normal sinus rhythm Nonspecific T wave abnormality Abnormal ECG
--- NOTE | 2020-11-10 19:59 | Cardiology Report ---
APPROVED REPORT EKG Measurement Heart [id number] <Conclusion> Normal sinus rhythm Possible Left atrial enlargement Borderline ECG
== END 2020-11-02 21:30 | disposition home or self-care (01) | DRG 203 ==
LOC: EMR 14:05 → 2E 15:55 → EDBEDREQ 16:26 → 2E 17:02
DX: R07.89 Other chest pain (principal); E78.5 Hyperlipidemia, unspecified; I11.0 Hypertensive heart disease with heart failure; R06.03 Acute respiratory distress; I50.30 Unspecified diastolic (congestive) heart failure
CPT/HCPCS: 36415; 71045; 78452; 80048; 80053; 80061; 82150; 83036; 83605; 83690; 83735; 83880; 84100; 84443; 84484; 85025; 85379; 85651; 86140; 93005; 93017; 93306; 99285; J2785